=== PATIENT | female | born 1970 | race Caucasian/White ===

== ENCOUNTER 2016-09-28 11:59 | Emergency (ER) | payer MEDICARE ==
[~2016-09-28 11:59] MED LIST: /HYDR1TAB PO; ABIL2TAB; ABIL5TAB; BACT800T5 PO; CELE40TA PO; DEPA500T2 PO; EFFE75CA75; HYDR50TA8; KLON1TAB PO; LYRI75CA PO; METH-107 PO; NICO21PAT EXT; OXYC5CAP28 PO; PERC5TAB PO; PRISTIQ; PROM-190 PO; PROZ10CA7 PO; SERO1TAB PO; SOMA350T; TRAM50TA2; TRAM50TA2 PO; TRAZ50TA; TRAZ50TA4 PO; Tramadol; VENL37.5; VICO5TAB; WELLTAB40 PO; XANA0.5T PO
[2016-09-28] MEDS ORDERED: GI COCKTAIL 50ML BTL(HYOSCYAMINE/MAALOX/LIDOCAINE VISCOUS)(1:3:1) As Ordered ONE (12:24)
[2016-09-28] MEDS ORDERED: ONDANSETRON 4MG/2ML VIAL (J2405) As Ordered ONE (12:44)
[2016-09-28 12:47] LABS: BASO # 0.1 K/mm3 (0.0-0.2); BASO % 0.4 % (0.0-1.0); EOS # 0.1 K/mm3 (0.0-0.50); LARGE UNSTAINED CELL # 0.2 K/mm3 (0.0-0.4); LARGE UNSTAINED CELL % 1.3 % (0.0-4.0); LYMPH # 3.3 K/mm3 (1.5-4.5); LYMPH % 25.2 % (24.0-44.0); MEAN CORPUSCULAR HEMOGLOBIN 29.5 pg (27.0-33.0); MEAN CORPUSCULAR HGB CONC 33.4 g/dl (32.0-36.5); MEAN CORPUSCULAR VOLUME 88.6 fl (80.0-96.0); MONO # 0.4 K/mm3 (0.0-0.8); MONO % 2.9 % (0.0-5.0); NEUTROPHILS % 69.1 % (36.0-66.0); PLATELET COUNT, AUTOMATED 263 k/mm3 (150-450); RED CELL DISTRIBUTION WIDTH 12.6 % (11.5-14.5)
[2016-09-28 12:53] LABS: INR 0.99
[2016-09-28 13:15] LABS: ALBUMIN/GLOBULIN RATIO 1.03 (1.00-1.93); ALKALINE PHOSPHATASE 45 U/L (45-117); ALT/SGPT 22 U/L (12-78); AMYLASE 83 U/L (25-115); ANION GAP 7 MEQ/L (8-16); AST/SGOT 15 U/L (15-37); BILIRUBIN,DIRECT < 0.1 MG/DL (0.0-0.2); BILIRUBIN,TOTAL 0.6 MG/DL (0.2-1.0); BLOOD UREA NITROGEN 12 MG/DL (7-18); CALCIUM LEVEL 9.1 MG/DL (8.5-10.1); CARBON DIOXIDE LEVEL 29 MEQ/L (21-32); CHLORIDE LEVEL 106 MEQ/L (98-107); GLOMERULAR FILTRATION RATE > 60.0 (>58); GLUCOSE, FASTING 95 MG/DL (70-105); POTASSIUM SERUM 3.5 MEQ/L (3.5-5.1); SODIUM LEVEL 142 MEQ/L (136-145); TOTAL PROTEIN 7.9 GM/DL (6.4-8.2)
--- NOTE | 2016-09-28 13:23 | REP ---
Acute abdominal series three views including PA chest and supine upright abdomen: Comparison is 05/07/2008. PA chest: The lung herrera are clear. Cardiac size is normal. The priscila, mediastinum, and bony thorax are unremarkable. There is no free subdiaphragmatic air. Impression: Negative PA chest. No interval change. Abdomen, supine and upright views: The bowel gas pattern is normal. There are surgical clips in the right upper quadrant as interval change compatible with cholecystectomy. There are pelvic calcifications, unchanged, compatible with phleboliths. Skeletal structures and soft tissues otherwise are unremarkable. Impression: Normal bowel gas pattern. Signed by Alfonso Kilpatrick MD 09/28/2016 01:15 P
--- NOTE | 2016-09-28 13:57 | EDDOCDS ---
Physician Documentation [facility] Name: Renetta Burton Age: 46 yrs Sex: Female : 1970 Arrival Date: 09/28/2016 Time: 11:59 Bed 12 Private MD: Martha Esquivel E. Disposition: 09/28/16 13:35 Discharged to Home/Self Care. Impression: Gastro-esophageal reflux disease with esophagitis. - Condition is Stable. - Discharge Instructions: Esophagitis, Gastroesophageal Reflux Disease, Adult. - Prescriptions for Prilosec 20 mg Oral Capsule, Delayed Release(E.C.) - take 1 capsule by ORAL route once daily; 30 capsule. - Medication Reconciliation, Local Pharmacy Hours form. - Follow up: Martha Esquivel; When: 4 - 5 days; Reason: Recheck today's complaints, Continuance of care. Follow up: Eduin Miller MD; When: Call to arrange an appointment; Reason: Further diagnostic work-up, Continuance of care. Follow up: Nathaniel Nowak; When: Call to arrange an appointment; Reason: Further diagnostic work-up, Continuance of care. - Problem is an ongoing problem. - Symptoms are unchanged. Historical: - Allergies: PENICILLINS; RISPERIDONE; - Home Meds: 1. Wellbutrin XL 300 mg Oral Tb24 1 tab once daily - PMHx: neck and back "issues"; GERD; Anxiety; - PSHx: Hysterectomy; Cholecystectomy; polyps removed from rectum; Carpal Tunnel Repair- Left; - Social history: Smoking status: Patient states former smoker of tobacco. No barriers to communication noted, The patient speaks fluent Algerian, Speaks appropriately for age. - Family history: Not pertinent. - : The pt / caregiver states he / she is not on anticoagulants. Home medication list is obtained from the patient. - Exposure Risk Screening:: None identified. TRAINING DIRECTOR: 09/28 12:42 LMP N/A - Hysterectomy kc3 Vital Signs: 12:01 BP 152 / 86; Pulse 81; Resp 16; Temp 97.6(O); Pulse Ox 100% on R/A; Weight 58.97 kg / sew 130.01 lbs; Height 5 ft. 2 in. (157.48 cm); Pain 3/10; 13:15 BP 133 / 74 (auto/); kc3 13:15 Pulse 74 MON; Pulse Ox 98% ; kc3 13:55 BP 129 / 67; Pulse 69; Resp 18; Temp 99.1(TE); Pulse Ox 96% on R/A; kc3 12:01 Body Mass Index 23.78 (58.97 kg, 157.48 cm) sew MDM: 12:03 ECG WITH READING ER PHYS+CARDIAG ordered. EDMS 12:22 NS 0.9% 1000 ml IV at 100 mL/hr continuous ordered. ke 12:22 IV Saline Lock ordered. ke 12:22 Undress patient appropriately for examination ordered. ke 12:22 GI Cocktail - (Alum-Mag Hydroxide-Simeth 30 ml, Lidocaine 10 ml, Hyoscyamine 10 ml) PO ke once; Pre-mixed 50mL unit dose ordered. 12:23 Amylase Ordered. EDMS 12:23 Basic Metabolic Profile Ordered. EDMS 12:23 CBC with Diff Ordered. EDMS 12:23 Cardiac Injury Profile Ordered. EDMS 12:23 Lipase Ordered. EDMS 12:23 Liver Profile Ordered. EDMS 12:23 Prothrombin Time Profile\\E\\INR Ordered. EDMS 12:23 Troponin Ordered. EDMS 12:23 Abdomen, Flat\\E\\Upright,PA Chest Ordered. EDMS 12:23 NOTHING BY MOUTH+DIET ordered. EDMS 12:27 Ondansetron 4 mg IVP once ordered. ke 12:46 Financial registration complete. mm15 12:49 [facility] Payment Agreement was scanned into [employer] and attached to record. mm15 13:22 Basic Metabolic Profile Reviewed. ke 13:22 CBC with Diff Reviewed. ke 13:22 Amylase Reviewed. ke 13:22 Cardiac Injury Profile Reviewed. ke 13:22 Lipase Reviewed. ke 13:22 Liver Profile Reviewed. ke 13:22 Prothrombin Time Profile\\E\\INR Reviewed. ke 13:22 Troponin Reviewed. ke Administered Medications: 12:40 Drug: GI Cocktail - (Alum-Mag Hydroxide-Simeth Suspension 225 mg-200 mg-25 mg/5 mL 30 kc3 ml, Lidocaine Liquid 2 % 10 ml, Hyoscyamine Liquid 10 ml) Route: PO; 12:41 Drug: NS 0.9% 1000 ml [sodium chloride 0.9 % intravenous solution] Route: IV; Rate: 100 kc3 mL/hr; Site: right antecubital; 12:50 Drug: Ondansetron 4 mg [ondansetron HCl 2 mg/mL intravenous solution (2 mL)] Route: kc3 IVP; Site: right antecubital; Signatures: Dispatcher [employer] Astrid Flynn RN RN srm Elsner, Karl, ASPHALT TILE FLOOR LAYER ASPHALT TILE FLOOR LAYER Enriqueta Barrera mm15 Sue Garay RN RN kc3 The chart was reviewed and I authenticate all verbal orders and agree with the evaluation and treatment provided.Attachments: 12:49 [facility] Payment Agreement mm15 MTDD
--- NOTE | 2016-09-28 13:57 | EDDOCDS ---
Nurse's Notes [facility] Name: Renetta Burton Age: 46 yrs Sex: Female : 1970 Arrival Date: 09/28/2016 Time: 11:59 Bed 12 Private MD: Martha Esquivel E. Diagnosis: Gastro-esophageal reflux disease with esophagitis Presentation: 09/28 12:02 Presenting complaint: Patient states: epigastric pain for 2 weeks. pain doesn't srm radiate. hx of GERD but this feels different. nausea all the time no SOB. 81mg at 1030. Adult Sepsis Screening: The patient does not have new or worsening altered mentation. Patient's respiratory rate is less than 22. Systolic blood pressure is greater than 100. Patient has a qSOFA score of 0- Negative Sepsis Screen. Suicide/Homicide risk assessment- the patient denies having any suicidal and/or homicidal ideations and does not present with any other emotional, behavioral or mental health complaints. Status: Patient is not a vp marketing services and skin or dependent. Transition of care: patient was not received from another setting of care. 12:02 Method Of Arrival: Walkin/Carried/Asstd srm 12:05 Presenting complaint: states pain makes her anxiety worse. srm 12:05 Acuity: HAZEL Level 2 [facility] 12:21 Red Flag criteria, direct to bed for ekg. ekg given to dr theodore and discussed pt c/o at [facility] 1205. Triage Assessment: 12:04 General: Appears in no apparent distress, Behavior is appropriate for age, cooperative. srm General: Appears Behavior is anxious. Pain: Pain currently is 3 out of 10 on a pain scale. HIV screening NA for this visit Offered previously. 13:57 Cardiovascular: Chest pain is described as mild, radiates Does not radiate. episodes kc3 are intermittent began "weeks". HOUSEKEEPING DIRECTOR: 12:42 LMP N/A - Hysterectomy kc3 Historical: - Allergies: PENICILLINS; RISPERIDONE; - Home Meds: 1. Wellbutrin XL 300 mg Oral Tb24 1 tab once daily - PMHx: neck and back "issues"; GERD; Anxiety; - PSHx: Hysterectomy; Cholecystectomy; polyps removed from rectum; Carpal Tunnel Repair- Left; - Social history: Smoking status: Patient states former smoker of tobacco. No barriers to communication noted, The patient speaks fluent Polish, Speaks appropriately for age. - Family history: Not pertinent. - : The pt / caregiver states he / she is not on anticoagulants. Home medication list is obtained from the patient. - Exposure Risk Screening:: None identified. Screenin:41 Screening information is obtained from the patient. Fall risk: No risks identified. kc3 Assistance ADL's: requires no assistance with activities of daily living. Abuse/DV Screen: The patient / caregiver reports he/she is: not in a situation that causes fear, pain or injury. Nutritional screening: No deficits noted. home support is adequate. 13:57 Advance Directives: Currently, there is no health care proxy. kc3 Assessment: 12:18 General: Appears in no apparent distress, comfortable, Behavior is anxious, appropriate kc3 for age, cooperative. Pain: Denies pain. Neurological: Level of Consciousness is awake, alert, obeys commands, Oriented to person, place, time. Cardiovascular: Rhythm is sinus rhythm. Cardiovascular: Chest pain is described as mild, quality is "no pain but it feels like there's a pill stuck that I can't swallow. off and on for the last couple of weeks. Respiratory: Respiratory effort is even, unlabored. Derm: Skin is pink, warm & dry. Musculoskeletal: Circulation, motion, and sensation intact. 13:30 General: Appears in no apparent distress, comfortable, Behavior is appropriate for age, kc3 cooperative. Neurological: Level of Consciousness is awake, alert, obeys commands, Oriented to person, place, time. Respiratory: Respiratory effort is even, unlabored. Derm: Skin is pink, warm & dry. 13:56 General: Appears in no apparent distress, comfortable, Behavior is appropriate for age, kc3 cooperative. Neurological: No deficits noted. Cardiovascular: Rhythm is regular. Respiratory: Respiratory effort is even, unlabored. Derm: Skin is pink, warm & dry. Musculoskeletal: Circulation, motion, and sensation intact. Vital Signs: 12:01 BP 152 / 86; Pulse 81; Resp 16; Temp 97.6(O); Pulse Ox 100% on R/A; Weight 58.97 kg; sew Height 5 ft. 2 in. (157.48 cm); Pain 3/10; 13:15 BP 133 / 74 (auto/); kc3 13:15 Pulse 74 MON; Pulse Ox 98% ; kc3 13:55 BP 129 / 67; Pulse 69; Resp 18; Temp 99.1(TE); Pulse Ox 96% on R/A; kc3 12:01 Body Mass Index 23.78 (58.97 kg, 157.48 cm) sew Vitals: 12:01 Log In Time: September 28, 2016 at 11:58. RN notified that patient meets Red Flag sew criteria. ED Course: 12:00 Patient visited by Alley Rosen. sew 12:00 Patient moved to Waiting sew 12:01 Martha Esquivel is Private Physician. sew 12:01 Patient visited by Alley Rosen. sew 12:01 Patient moved to Pre RCE sew 12:05 Triage Initiated srm 12:05 EKG done. (by ED staff). Reviewed by Lizeth Theodore MD. dem1 12:08 Patient visited by Marshal Sargent. dem1 12:12 Sue Garay,ADÁN is Primary Nurse. srm 12:12 Patient moved to 12 srm 12:16 Corey Aguilar FNP is PHCP. ke 12:16 Patient visited by Corey Aguilar FNP. ke 12:16 Patient visited by Corey Aguilar FNP. ke 12:17 Patient visited by Marshal Sargent. dem1 12:17 Pt greeted and oriented to ED. Patient advised of names of staff involved in care, [facility] location of call shah, wait times and NPO status. Patient has correct armband on for positive identification. Placed in gown. Bed in low position. Call light in reach. Side rails up X2. ordnance keeper on. Pulse ox on. NIBP on. 12:21 Patient visited by Astrid Mullne RN. srm 12:41 Amylase Sent. kc3 12:41 Basic Metabolic Profile Sent. kc3 12:41 CBC with Diff Sent. kc3 12:41 Cardiac Injury Profile Sent. kc3 12:41 Lipase Sent. kc3 12:41 Liver Profile Sent. kc3 12:41 Prothrombin Time Profile\\E\\INR Sent. kc3 12:41 Troponin Sent. kc3 12:41 Inserted saline lock: 20 gauge in right antecubital area and blood collected. The kc3 patient tolerated the procedure well. Labs drawn. (by ED staff). Sent per order to lab. 12:42 The patient / caregiver is instructed regarding the plan of care and ED course. kc3 12:49 [facility] Payment Agreement was scanned into [employer] and attached to record. mm15 12:50 Patient visited by Sue Garay RN. kc3 13:22 Patient visited by Corey Aguilar FNP. ke 13:34 Martha Esquivel is Referral Physician. ke 13:34 Eduin Miller MD is Referral Physician. ke 13:34 Nathaniel Nowak is Referral Physician. ke 13:56 Discontinued IV lock intact, bleeding controlled, pressure dressing applied, No kc3 redness/swelling at site. No procedures done that require assistance. Administered Medications: 12:40 Drug: GI Cocktail - (Alum-Mag Hydroxide-Simeth Suspension 225 mg-200 mg-25 mg/5 mL 30 kc3 ml, Lidocaine Liquid 2 % 10 ml, Hyoscyamine Liquid 10 ml) Route: PO; 12:41 Drug: NS 0.9% 1000 ml [sodium chloride 0.9 % intravenous solution] Route: IV; Rate: 100 kc3 mL/hr; Site: right antecubital; 12:50 Drug: Ondansetron 4 mg [ondansetron HCl 2 mg/mL intravenous solution (2 mL)] Route: kc3 IVP; Site: right antecubital; Order Results: Lab Order: Amylase; SPEC'M 09/28/16 12:37 Test: AMYLASE; Value: 83; Range: 25-115; Units: U/L; Status: F Lab Order: Basic Metabolic Profile; SPEC'M 09/28/16 12:37 Test: GLUCOSE, FASTING; Value: 95; Range: 70-105; Units: MG/DL; Status: F Test: BLOOD UREA NITROGEN; Value: 12; Range: 7-18; Units: MG/DL; Status: F Test: CREATININE FOR GFR; Value: 0.80; Range: 0.55-1.02; Units: MG/DL; Status: F Test: GLOMERULAR FILTRATION RATE; Value: > 60.0; Range: >58; Status: F Test: SODIUM LEVEL; Value: 142; Range: 136-145; Units: MEQ/L; Status: F Test: POTASSIUM SERUM; Value: 3.5; Range: 3.5-5.1; Units: MEQ/L; Status: F Test: CHLORIDE LEVEL; Value: 106; Range: 98-107; Units: MEQ/L; Status: F Test: CARBON DIOXIDE LEVEL; Value: 29; Range: 21-32; Units: MEQ/L; Status: F Test: ANION GAP; Value: 7; Range: 8-16; Abnormal: Below low normal; Units: MEQ/L; Status: F Test: CALCIUM LEVEL; Value: 9.1; Range: 8.5-10.1; Units: MG/DL; Status: F Test Note: ; Units are mL/min/1.73 m2 Chronic Kidney Disease Staging per NKF: Stage I & II GFR >=60 Normal to Mildly Decreased Stage III GFR 30-59 Moderately Decreased Stage IV GFR 15-29 Severely Decreased Stage V GFR <15 Very Little GFR Left ESRD GFR <15 on BRANCH ADMINISTRATOR Lab Order: CBC with Diff; SPEC'M 09/28/16 12:37 Test: WHITE BLOOD COUNT; Value: 13.0; Range: 4.0-10.0; Abnormal: Above high normal; Units: K/mm3; Status: F Test: RED BLOOD COUNT; Value: 4.65; Range: 4.00-5.40; Units: M/mm3; Status: F Test: HEMOGLOBIN; Value: 13.7; Range: 12.0-16.0; Units: g/dl; Status: F Test: HEMATOCRIT; Value: 41.1; Range: 36.0-47.0; Units: %; Status: F Test: MEAN CORPUSCULAR VOLUME; Value: 88.6; Range: 80.0-96.0; Units: fl; Status: F Test: MEAN CORPUSCULAR HEMOGLOBIN; Value: 29.5; Range: 27.0-33.0; Units: pg; Status: F Test: MEAN CORPUSCULAR HGB CONC; Value: 33.4; Range: 32.0-36.5; Units: g/dl; Status: F Test: RED CELL DISTRIBUTION WIDTH; Value: 12.6; Range: 11.5-14.5; Units: %; Status: F Test: PLATELET COUNT, AUTOMATED; Value: 263; Range: 150-450; Units: k/mm3; Status: F Test: NEUTROPHILS %; Value: 69.1; Range: 36.0-66.0; Abnormal: Above high normal; Units: %; Status: F Test: LYMPH %; Value: 25.2; Range: 24.0-44.0; Units: %; Status: F Test: MONO %; Value: 2.9; Range: 0.0-5.0; Units: %; Status: F Test: EOS %; Value: 1.0; Range: 0.0-3.0; Units: %; Status: F Test: BASO %; Value: 0.4; Range: 0.0-1.0; Units: %; Status: F Test: LARGE UNSTAINED CELL %; Value: 1.3; Range: 0.0-4.0; Units: %; Status: F Test: NEUTROPHILS #; Value: 9.0; Range: 1.8-7.7; Abnormal: Above high normal; Units: K/mm3; Status: F Test: LYMPH #; Value: 3.3; Range: 1.5-4.5; Units: K/mm3; Status: F Test: MONO #; Value: 0.4; Range: 0.0-0.8; Units: K/mm3; Status: F Test: EOS #; Value: 0.1; Range: 0.0-0.50; Units: K/mm3; Status: F Test: BASO #; Value: 0.1; Range: 0.0-0.2; Units: K/mm3; Status: F Test: LARGE UNSTAINED CELL #; Value: 0.2; Range: 0.0-0.4; Units: K/mm3; Status: F Lab Order: Cardiac Injury Profile; SPEC'M 09/28/16 12:37 Test: CPK CREATINE PHOSPHOKINASE; Value: 70; Range: 26-192; Units: U/L; Status: F Test: CK-MB VALUE MASS; Value: 1.0; Range: 0.0-3.6; Units: NG/ML; Status: F Test: MB/CK RELATIVE INDEX; Value: 1.42; Range: < OR =4; Status: F Test Note: ; DIAGNOSIS CRITERIA MMB ng/ml Relative Index (RI) NON-AMI < or = 5 N/A [place]ONE > 5 < or = 4 AMI > 5 > 4 Lab Order: Lipase; SPEC'M 09/28/16 12:37 Test: LIPASE; Value: 230; Range: 73-393; Units: U/L; Status: F Lab Order: Liver Profile; [facility]/28[facility] 12:37 Test: AST/SGOT; Value: 15; Range: 15-37; Units: U/L; Status: F Test: ALT/SGPT; Value: 22; Range: 12-78; Units: U/L; Status: F Test: ALKALINE PHOSPHATASE; Value: 45; Range: 45-117; Units: U/L; Status: F Test: BILIRUBIN,TOTAL; Value: 0.6; Range: 0.2-1.0; Units: MG/DL; Status: F Test: BILIRUBIN,DIRECT; Value: < 0.1; Range: 0.0-0.2; Units: MG/DL; Status: F Test: TOTAL PROTEIN; Value: 7.9; Range: 6.4-8.2; Units: GM/DL; Status: F Test: ALBUMIN; Value: 4.0; Range: 3.2-5.2; Units: GM/DL; Status: F Test: ALBUMIN/GLOBULIN RATIO; Value: 1.03; Range: 1.00-1.93; Status: F Lab Order: Prothrombin Time Profile\\E\\INR; 09/28/16 12:37 Test: PROTHROMBIN TIME; Value: 13.2; Range: 12.3-14.5; Units: SECONDS; Status: F Test: INR; Value: 0.99; Status: F Test Note: ; THERAPUTIC HUMAN INR VALUES INDICATIONS NORMAL RANGES PROPHYLAXIS/TREATMENT OF: VENOUS THROMBOSIS 2.0-3.0 PULMONARY EMBOLISM 2.0-3.0 PREVENTION OF SYSTEMIC EMBOLISM FROM: TISSUE HEART VALVES 2.0-3.0 ACUTE MYOCARDIAL INFARCTION 2.0-3.0 VALVULAR HEART DISEASE 2.0-3.0 ATRIAL FIBRILLATION 2.0-3.0 MECHANICAL VALVES(HIGH RISK) 2.5-3.5 RECURRENT MYOCARDIAL INFARCTION 2.5-3.5 Lab Order: Troponin; 09/28/16 12:37 Test: TROPONIN I; Value: < 0.02; Range: < 0.10; Units: NG/ML; Status: F Test Note: ; Troponin I Reference Interval for [email or web address] LOCI: 99th Percentile= 0.00-0.045 ng/ml Risk Stratification: <= 0.10 ng/ml Decreased Risk for Adverse Clinical Events. 0.10-1.50 ng/ml Increased Risk for Adverse Clinical Events. Evaluation of additional criterion and/or repeat testing in 2-6 hours is suggested to rule out myocardial damage. >= 1.50 ng/ml Indicative of Myocardial Injury. Outcome: 13:35 Discharge ordered by Provider. charlotte 13:56 Discharge Assessment: Patient awake, alert and oriented x 3. No cognitive and/or kc3 functional deficits noted. Patient verbalized understanding of disposition instructions. patient administered narcotics - no. The following High Risk Discharge criteria are identified: None. Discharged to home ambulatory. Condition: stable. Discharge instructions given to patient, Instructed on discharge instructions, follow up and referral plans. medication usage, Demonstrated understanding of instructions, medications, Pt was receptive of discharge instructions/ teaching. Prescriptions given X 1. No special radiology studies were completed. Property :Personal belongings accompany Pt. 13:57 Patient left the ED. kc3 Signatures: Astrid Mullen, RN RN Corey Castellanos, GAS SYSTEM OPERATOR [facility] Marshal Shaver1 Alley Rosen Marlynn mm15 Sue Garay,RN RN kc3 [facility] CENTERKaitlynn
--- NOTE | 2016-09-28 21:31 | ECGEPIP ---
Stationary ECG Study [facility] - ED Test Date: 2016-09-28 Pat Name: BRIANNA RUBIN Department: Room: - Gender: F Counselor Dormitory: pat : 1970 Requested By: MEE Pandya Order Number: [id number] Reading MD: Alley Apple Measurements Intervals [place] Rate: 74 P: 38 NC: 133 QRS: 78 QRSD: 84 T: 12 QT: 368 QTc: 410 Interpretive Statements SINUS RHYTHM MINIMAL ST DEPRESSION NO PRIOR FOR COMPARISON Electronically Signed On 09-28-2016 21:30:39 EST by Alley Apple
--- NOTE | 2016-09-30 14:58 | EDDOCDS ---
Physician Documentation [facility] Name: Renetta Burton Age: 46 yrs Sex: Female : 1970 Arrival Date: 09/28/2016 Time: 11:59 Bed 12 Private MD: Martha Esquivel E. Disposition: 09/28/16 13:35 Discharged to Home/Self Care. Impression: Gastro-esophageal reflux disease with esophagitis. - Condition is Stable. - Discharge Instructions: Esophagitis, Gastroesophageal Reflux Disease, Adult. - Prescriptions for Prilosec 20 mg Oral Capsule, Delayed Release(E.C.) - take 1 capsule by ORAL route once daily; 30 capsule. - Medication Reconciliation, Local Pharmacy Hours form. - Follow up: Martha Esquivel; When: 4 - 5 days; Reason: Recheck today's complaints, Continuance of care. Follow up: Eduin Miller MD; When: Call to arrange an appointment; Reason: Further diagnostic work-up, Continuance of care. Follow up: Nathaniel Nowak; When: Call to arrange an appointment; Reason: Further diagnostic work-up, Continuance of care. - Problem is an ongoing problem. - Symptoms are unchanged. Historical: - Allergies: PENICILLINS; RISPERIDONE; - Home Meds: 1. Wellbutrin XL 300 mg Oral Tb24 1 tab once daily - PMHx: neck and back "issues"; GERD; Anxiety; - PSHx: Hysterectomy; Cholecystectomy; polyps removed from rectum; Carpal Tunnel Repair- Left; - Social history: Smoking status: Patient states former smoker of tobacco. No barriers to communication noted, The patient speaks fluent Scottish, Speaks appropriately for age. - Family history: Not pertinent. - : The pt / caregiver states he / she is not on anticoagulants. Home medication list is obtained from the patient. - Exposure Risk Screening:: None identified. 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 2 in. (157.48 cm); Pain 3/10; 13:15 BP 133 / 74 (auto/); kc3 13:15 Pulse 74 MON; Pulse Ox 98% ; kc3 13:55 BP 129 / 67; Pulse 69; Resp 18; Temp 99.1(TE); Pulse Ox 96% on R/A; kc3 12:01 Body Mass Index 23.78 (58.97 kg, 157.48 cm) sew MDM: 12:03 ECG WITH READING ER PHYS+CARDIAG ordered. EDMS 12:22 NS 0.9% 1000 ml IV at 100 mL/hr continuous ordered. ke 12:22 IV Saline Lock ordered. ke 12:22 Undress patient appropriately for examination ordered. ke 12:22 GI Cocktail - (Alum-Mag Hydroxide-Simeth 30 ml, Lidocaine 10 ml, Hyoscyamine 10 ml) PO ke once; Pre-mixed 50mL unit dose ordered. 12:23 Amylase Ordered. EDMS 12:23 Basic Metabolic Profile Ordered. EDMS 12:23 CBC with Diff Ordered. EDMS 12:23 Cardiac Injury Profile Ordered. EDMS 12:23 Lipase Ordered. EDMS 12:23 Liver Profile Ordered. EDMS 12:23 Prothrombin Time Profile\\E\\INR Ordered. EDMS 12:23 Troponin Ordered. EDMS 12:23 Abdomen, Flat\\E\\Upright,PA Chest Ordered. EDMS 12:23 NOTHING BY MOUTH+DIET ordered. EDMS 12:27 Ondansetron 4 mg IVP once ordered. ke 12:46 Financial registration complete. mm15 12:49 [facility] Payment Agreement was scanned into [employer] and attached to record. mm15 13:22 Basic Metabolic Profile Reviewed. ke 13:22 CBC with Diff Reviewed. ke 13:22 Amylase Reviewed. ke 13:22 Cardiac Injury Profile Reviewed. ke 13:22 Lipase Reviewed. ke 13:22 Liver Profile Reviewed. ke 13:22 Prothrombin Time Profile\\E\\INR Reviewed. ke 13:22 Troponin Reviewed. ke 14:30 Other: HEALTH CARE PROXY was scanned into [employer] and attached to record. lg 14:57 T-Sheet-- Draft Copy was scanned into [employer] and attached to record. gb 09/29 17:06 ECG/EKG was scanned into [employer] and attached to record. gb Administered Medications: 09/28 12:40 Drug: GI Cocktail - (Alum-Mag Hydroxide-Simeth Suspension 225 mg-200 mg-25 mg/5 mL 30 kc3 ml, Lidocaine Liquid 2 % 10 ml, Hyoscyamine Liquid 10 ml) Route: PO; 12:41 Drug: NS 0.9% 1000 ml [sodium chloride 0.9 % intravenous solution] Route: IV; Rate: 100 kc3 mL/hr; Site: right antecubital; 12:50 Drug: Ondansetron 4 mg [ondansetron HCl 2 mg/mL intravenous solution (2 mL)] Route: kc3 IVP; Site: right antecubital; Signatures: Dispatcher [employer] EDMS Astrid Mullen, RN RN [facility] Rhonda Ruby, Reg Reg gb Dallas Gonzales, Reg Reg lg Corey Aguilar, BROOD STATION MANAGER BROOD STATION MANAGER Enriqueta Barrera mm15 Sue Garay RN RN kc3 The chart was reviewed and I authenticate all verbal orders and agree with the evaluation and treatment provided.Attachments: 12:49 [facility] Payment Agreement mm15 14:57 T-Sheet-- Draft Copy 09/29 17:06 ECG/EKG Chart Complete MTDD
--- NOTE | 2016-09-30 14:58 | EDDOCDS ---
Nurse's Notes [facility] Name: Brianna Burton Age: 46 yrs Sex: Female : 1970 Arrival Date: 09/28/2016 Time: 11:59 Bed 12 Private MD: Martha Esquivel E. Diagnosis: Gastro-esophageal reflux disease with esophagitis Presentation: 09/28 12:02 Presenting complaint: Patient states: epigastric pain for 2 weeks. pain doesn't srm radiate. hx of GERD but this feels different. nausea all the time no SOB. 81mg at 1030. Adult Sepsis Screening: The patient does not have new or worsening altered mentation. Patient's respiratory rate is less than 22. Systolic blood pressure is greater than 100. Patient has a qSOFA score of 0- Negative Sepsis Screen. Suicide/Homicide risk assessment- the patient denies having any suicidal and/or homicidal ideations and does not present with any other emotional, behavioral or mental health complaints. Status: Patient is not a engine service repairer or dependent. Transition of care: patient was not received from another setting of care. 12:02 Method Of Arrival: Walkin/Carried/Asstd srm 12:05 Presenting complaint: states pain makes her anxiety worse. srm 12:05 Acuity: HAZEL Level 2 [facility] 12:21 Red Flag criteria, direct to bed for ekg. ekg given to dr badillo and discussed pt c/o at [facility] 1205. Triage Assessment: 12:04 General: Appears in no apparent distress, Behavior is appropriate for age, cooperative. srm General: Appears Behavior is anxious. Pain: Pain currently is 3 out of 10 on a pain scale. HIV screening NA for this visit Offered previously. 13:57 Cardiovascular: Chest pain is described as mild, radiates Does not radiate. episodes kc3 are intermittent began "weeks". 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 Wellbutrin XL 300 mg Oral Tb24 1 tab once daily - PMHx: neck and back "issues"; GERD; Anxiety; - PSHx: Hysterectomy; Cholecystectomy; polyps removed from rectum; Carpal Tunnel Repair- Left; - Social history: Smoking status: Patient states former smoker of tobacco. No barriers to communication noted, The patient speaks fluent Icelandic, Speaks appropriately for age. - Family history: Not pertinent. - : The pt / caregiver states he / she is not on anticoagulants. Home medication list is obtained from the patient. - Exposure Risk Screening:: None identified. Screenin:41 Screening information is obtained from the patient. Fall risk: No risks identified. kc3 Assistance ADL's: requires no assistance with activities of daily living. Abuse/DV Screen: The patient / caregiver reports he/she is: not in a situation that causes fear, pain or injury. Nutritional screening: No deficits noted. home support is adequate. 13:57 Advance Directives: Currently, there is no health care proxy. kc3 Assessment: 12:18 General: Appears in no apparent distress, comfortable, Behavior is anxious, appropriate kc3 for age, cooperative. Pain: Denies pain. Neurological: Level of Consciousness is awake, alert, obeys commands, Oriented to person, place, time. Cardiovascular: Rhythm is sinus rhythm. Cardiovascular: Chest pain is described as mild, quality is "no pain but it feels like there's a pill stuck that I can't swallow. off and on for the last couple of weeks. Respiratory: Respiratory effort is even, unlabored. Derm: Skin is pink, warm & dry. Musculoskeletal: Circulation, motion, and sensation intact. 13:30 General: Appears in no apparent distress, comfortable, Behavior is appropriate for age, kc3 cooperative. Neurological: Level of Consciousness is awake, alert, obeys commands, Oriented to person, place, time. Respiratory: Respiratory effort is even, unlabored. Derm: Skin is pink, warm & dry. 13:56 General: Appears in no apparent distress, comfortable, Behavior is appropriate for age, kc3 cooperative. Neurological: No deficits noted. Cardiovascular: Rhythm is regular. Respiratory: Respiratory effort is even, unlabored. Derm: Skin is pink, warm & dry. Musculoskeletal: Circulation, motion, and sensation intact. Vital Signs: 12:01 BP 152 / 86; Pulse 81; Resp 16; Temp 97.6(O); Pulse Ox 100% on R/A; Weight 58.97 kg; sew Height 5 ft. 2 in. (157.48 cm); Pain 3/10; 13:15 BP 133 / 74 (auto/); kc3 13:15 Pulse 74 MON; Pulse Ox 98% ; kc3 13:55 BP 129 / 67; Pulse 69; Resp 18; Temp 99.1(TE); Pulse Ox 96% on R/A; kc3 12:01 Body Mass Index 23.78 (58.97 kg, 157.48 cm) sew Vitals: 12:01 Log In Time: September 28, 2016 at 11:58. RN notified that patient meets Red Flag sew criteria. ED Course: 12:00 Patient visited by Alley Rosen. sew 12:00 Patient moved to Waiting sew 12:01 Martha Esquivel is Private Physician. sew 12:01 Patient visited by Alley Rosen. sew 12:01 Patient moved to Pre RCE sew 12:05 Triage Initiated srm 12:05 EKG done. (by ED staff). Reviewed by Lizeth Badillo MD. dem1 12:08 Patient visited by Marshal Sargent. dem1 12:12 Sue Garay,ADÁN is Primary Nurse. srm 12:12 Patient moved to 12 srm 12:16 Corey Aguilar FNP is PHCP. ke 12:16 Patient visited by Corey Aguilar FNP. ke 12:16 Patient visited by Corey Aguilar FNP. ke 12:17 Patient visited by Marshal Sargent. dem1 12:17 Pt greeted and oriented to ED. Patient advised of names of staff involved in care, [facility] location of call shah, wait times and NPO status. Patient has correct armband on for positive identification. Placed in gown. Bed in low position. Call light in reach. Side rails up X2. groundwater monitoring technician on. Pulse ox on. NIBP on. 12:21 Patient visited by Astrid Mullen RN. srm 12:41 Amylase Sent. kc3 12:41 Basic Metabolic Profile Sent. kc3 12:41 CBC with Diff Sent. kc3 12:41 Cardiac Injury Profile Sent. kc3 12:41 Lipase Sent. kc3 12:41 Liver Profile Sent. kc3 12:41 Prothrombin Time Profile\\E\\INR Sent. kc3 12:41 Troponin Sent. kc3 12:41 Inserted saline lock: 20 gauge in right antecubital area and blood collected. The kc3 patient tolerated the procedure well. Labs drawn. (by ED staff). Sent per order to lab. 12:42 The patient / caregiver is instructed regarding the plan of care and ED course. kc3 12:49 [facility] Payment Agreement was scanned into [employer] and attached to record. mm15 12:50 Patient visited by Sue Garay RN. kc3 13:22 Patient visited by Corey Aguilar FNP. ke 13:34 Martha Esquivel is Referral Physician. ke 13:34 Eduin Miller MD is Referral Physician. ke 13:34 Nathaniel Nowak is Referral Physician. ke 13:56 Discontinued IV lock intact, bleeding controlled, pressure dressing applied, No kc3 redness/swelling at site. No procedures done that require assistance. 14:11 Abdomen, Flat\\E\\Upright,PA Chest Returned. EDMS 14:30 Other: HEALTH CARE PROXY was scanned into [employer] and attached to record. lg 14:57 T-Sheet-- Draft Copy was scanned into [employer] and attached to record. gb 22:16 EKG-ADULT Returned. EDMS 02 17:06 ECG/EKG was scanned into [employer] and attached to record. gb Administered Medications: 09/28 12:40 Drug: GI Cocktail - (Alum-Mag Hydroxide-Simeth Suspension 225 mg-200 mg-25 mg/5 mL 30 kc3 ml, Lidocaine Liquid 2 % 10 ml, Hyoscyamine Liquid 10 ml) Route: PO; 12:41 Drug: NS 0.9% 1000 ml [sodium chloride 0.9 % intravenous solution] Route: IV; Rate: 100 kc3 mL/hr; Site: right antecubital; 12:50 Drug: Ondansetron 4 mg [ondansetron HCl 2 mg/mL intravenous solution (2 mL)] Route: kc3 IVP; Site: right antecubital; Order Results: Lab Order: Amylase; SPEC'M 09/28/16 12:37 Test: AMYLASE; Value: 83; Range: 25-115; Units: U/L; Status: F Lab Order: Basic Metabolic Profile; SPEC'M 09/28/16 12:37 Test: GLUCOSE, FASTING; Value: 95; Range: 70-105; Units: MG/DL; Status: F Test: BLOOD UREA NITROGEN; Value: 12; Range: 7-18; Units: MG/DL; Status: F Test: CREATININE FOR GFR; Value: 0.80; Range: 0.55-1.02; Units: MG/DL; Status: F Test: GLOMERULAR FILTRATION RATE; Value: > 60.0; Range: >58; Status: F Test: SODIUM LEVEL; Value: 142; Range: 136-145; Units: MEQ/L; Status: F Test: POTASSIUM SERUM; Value: 3.5; Range: 3.5-5.1; Units: MEQ/L; Status: F Test: CHLORIDE LEVEL; Value: 106; Range: 98-107; Units: MEQ/L; Status: F Test: CARBON DIOXIDE LEVEL; Value: 29; Range: 21-32; Units: MEQ/L; Status: F Test: ANION GAP; Value: 7; Range: 8-16; Abnormal: Below low normal; Units: MEQ/L; Status: F Test: CALCIUM LEVEL; Value: 9.1; Range: 8.5-10.1; Units: MG/DL; Status: F Test Note: ; Units are mL/min/1.73 m2 Chronic Kidney Disease Staging per NKF: Stage I & II GFR >=60 Normal to Mildly Decreased Stage III GFR 30-59 Moderately Decreased Stage IV GFR 15-29 Severely Decreased Stage V GFR <15 Very Little GFR Left ESRD GFR <15 on QUARTZ ORIENTATOR Lab Order: CBC with Diff; SPEC'M 09/28/16 12:37 Test: WHITE BLOOD COUNT; Value: 13.0; Range: 4.0-10.0; Abnormal: Above high normal; Units: K/mm3; Status: F Test: RED BLOOD COUNT; Value: 4.65; Range: 4.00-5.40; Units: M/mm3; Status: F Test: HEMOGLOBIN; Value: 13.7; Range: 12.0-16.0; Units: g/dl; Status: F Test: HEMATOCRIT; Value: 41.1; Range: 36.0-47.0; Units: %; Status: F Test: MEAN CORPUSCULAR VOLUME; Value: 88.6; Range: 80.0-96.0; Units: fl; Status: F Test: MEAN CORPUSCULAR HEMOGLOBIN; Value: 29.5; Range: 27.0-33.0; Units: pg; Status: F Test: MEAN CORPUSCULAR HGB CONC; Value: 33.4; Range: 32.0-36.5; Units: g/dl; Status: F Test: RED CELL DISTRIBUTION WIDTH; Value: 12.6; Range: 11.5-14.5; Units: %; Status: F Test: PLATELET COUNT, AUTOMATED; Value: 263; Range: 150-450; Units: k/mm3; Status: F Test: NEUTROPHILS %; Value: 69.1; Range: 36.0-66.0; Abnormal: Above high normal; Units: %; Status: F Test: LYMPH %; Value: 25.2; Range: 24.0-44.0; Units: %; Status: F Test: MONO %; Value: 2.9; Range: 0.0-5.0; Units: %; Status: F Test: EOS %; Value: 1.0; Range: 0.0-3.0; Units: %; Status: F Test: BASO %; Value: 0.4; Range: 0.0-1.0; Units: %; Status: F Test: LARGE UNSTAINED CELL %; Value: 1.3; Range: 0.0-4.0; Units: %; Status: F Test: NEUTROPHILS #; Value: 9.0; Range: 1.8-7.7; Abnormal: Above high normal; Units: K/mm3; Status: F Test: LYMPH #; Value: 3.3; Range: 1.5-4.5; Units: K/mm3; Status: F Test: MONO #; Value: 0.4; Range: 0.0-0.8; Units: K/mm3; Status: F Test: EOS #; Value: 0.1; Range: 0.0-0.50; Units: K/mm3; Status: F Test: BASO #; Value: 0.1; Range: 0.0-0.2; Units: K/mm3; Status: F Test: LARGE UNSTAINED CELL #; Value: 0.2; Range: 0.0-0.4; Units: K/mm3; Status: F Lab Order: Cardiac Injury Profile; SPEC'M 09/28/16 12:37 Test: CPK CREATINE PHOSPHOKINASE; Value: 70; Range: 26-192; Units: U/L; Status: F Test: CK-MB VALUE MASS; Value: 1.0; Range: 0.0-3.6; Units: NG/ML; Status: F Test: MB/CK RELATIVE INDEX; Value: 1.42; Range: < OR =4; Status: F Test Note: ; DIAGNOSIS CRITERIA MMB ng/ml Relative Index (RI) NON-AMI < or = 5 N/A [place] > 5 < or = 4 AMI > 5 > 4 Lab Order: Lipase; [facility] 09/28/16 12:37 Test: LIPASE; Value: 230; Range: 73-393; Units: U/L; Status: F Lab Order: Liver Profile; [facility] 09/28/16 12:37 Test: AST/SGOT; Value: 15; Range: 15-37; Units: U/L; Status: F Test: ALT/SGPT; Value: 22; Range: 12-78; Units: U/L; Status: F Test: ALKALINE PHOSPHATASE; Value: 45; Range: 45-117; Units: U/L; Status: F Test: BILIRUBIN,TOTAL; Value: 0.6; Range: 0.2-1.0; Units: MG/DL; Status: F Test: BILIRUBIN,DIRECT; Value: < 0.1; Range: 0.0-0.2; Units: MG/DL; Status: F Test: TOTAL PROTEIN; Value: 7.9; Range: 6.4-8.2; Units: GM/DL; Status: F Test: ALBUMIN; Value: 4.0; Range: 3.2-5.2; Units: GM/DL; Status: F Test: ALBUMIN/GLOBULIN RATIO; Value: 1.03; Range: 1.00-1.93; Status: F Lab Order: Prothrombin Time Profile\\E\\INR; [facility] 09/28/16 12:37 Test: PROTHROMBIN TIME; Value: 13.2; Range: 12.3-14.5; Units: SECONDS; Status: F Test: INR; Value: 0.99; Status: F Test Note: ; THERAPUTIC HUMAN INR VALUES INDICATIONS NORMAL RANGES PROPHYLAXIS/TREATMENT OF: VENOUS THROMBOSIS 2.0-3.0 PULMONARY EMBOLISM 2.0-3.0 PREVENTION OF SYSTEMIC EMBOLISM FROM: TISSUE HEART VALVES 2.0-3.0 ACUTE MYOCARDIAL INFARCTION 2.0-3.0 VALVULAR HEART DISEASE 2.0-3.0 ATRIAL FIBRILLATION 2.0-3.0 MECHANICAL VALVES(HIGH RISK) 2.5-3.5 RECURRENT MYOCARDIAL INFARCTION 2.5-3.5 Lab Order: Troponin; SPEC'M 09/28/16 12:37 Test: TROPONIN I; Value: < 0.02; Range: < 0.10; Units: NG/ML; Status: F Test Note: ; Troponin I Reference Interval for [employer] [place] LOCI: 99th Percentile= 0.00-0.045 ng/ml Risk Stratification: <= 0.10 ng/ml Decreased Risk for Adverse Clinical Events. 0.10-1.50 ng/ml Increased Risk for Adverse Clinical Events. Evaluation of additional criterion and/or repeat testing in 2-6 hours is suggested to rule out myocardial damage. >= 1.50 ng/ml Indicative of Myocardial Injury. 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; : 1970 Requested By: LIZETH Pandya; Order Number: [id number] Reading MD: Alley Apple; Measurements; Intervals [place]; Rate: 74 P: 38; MS: 133 QRS: 78; QRSD: 84 T: 12; QT: 368; QTc: 410; Interpretive Statements; SINUS RHYTHM; MINIMAL ST DEPRESSION; NO PRIOR FOR COMPARISON; Electronically Signed On 09-28-2016 21:30:39 EST by Alley Apple; Radiology Order: Abdomen, Flat\\E\\Upright,PA Chest Test: Abdomen, Flat\\E\\Upright,PA Chest REASON FOR EXAMINATION: Abdomen Pain; Acute abdominal series three views including PA chest and supine upright; abdomen:; ; Comparison is 05/07/2008.; ; PA chest:; ; The lung herrera are clear. Cardiac size is normal. The priscila, mediastinum, and; bony thorax are unremarkable.; ; There is no free subdiaphragmatic air.; ; Impression:; ; Negative PA chest. No interval change.; ; ; ; Abdomen, supine and upright views:; ; The bowel gas pattern is normal.; ; There are surgical clips in the right upper quadrant as interval change; compatible with cholecystectomy.; ; There are pelvic calcifications, unchanged, compatible with phleboliths.; ; Skeletal structures and soft tissues otherwise are unremarkable.; ; Impression:; ; Normal bowel gas pattern.; ; ; Signed by; Alfonso Kilpatrick MD 09/28/2016 01:15 P; Outcome: 13:35 Discharge ordered by Provider. charlotte 13:56 Discharge Assessment: Patient awake, alert and oriented x 3. No cognitive and/or kc3 functional deficits noted. Patient verbalized understanding of disposition instructions. patient administered narcotics - no. The following High Risk Discharge criteria are identified: None. Discharged to home ambulatory. Condition: stable. Discharge instructions given to patient, Instructed on discharge instructions, follow up and referral plans. medication usage, Demonstrated understanding of instructions, medications, Pt was receptive of discharge instructions/ teaching. Prescriptions given X 1. No special radiology studies were completed. Property :Personal belongings accompany Pt. 13:57 Patient left the ED. kc3 Signatures: Dispatcher [employer] EDMS Astrid Mullen, RN RN [facility] Rhnoda Ruby, Reg Reg gb Dallas Gonzales, Reg Reg lg Corey Aguilar, HAND ASSEMBLER FOR PULLER OVER HAND ASSEMBLER FOR PULLER OVER Marshal Shaver1 Alley Rosen Marlynn mm15 Sue Garay,RN RN kc3 Chart Complete MTDD
--- NOTE | 2016-09-30 14:58 | EDDOCDS ---
Physician Documentation [facility] Name: Renetta Burton Age: 46 yrs Sex: Female : 1970 Arrival Date: 09/28/2016 Time: 11:59 Bed 12 Private MD: Martha Esquivel E. Disposition: 09/28/16 13:35 Discharged to Home/Self Care. Impression: Gastro-esophageal reflux disease with esophagitis. - Condition is Stable. - Discharge Instructions: Esophagitis, Gastroesophageal Reflux Disease, Adult. - Prescriptions for Prilosec 20 mg Oral Capsule, Delayed Release(E.C.) - take 1 capsule by ORAL route once daily; 30 capsule. - Medication Reconciliation, Local Pharmacy Hours form. - Follow up: Martha Esquivel; When: 4 - 5 days; Reason: Recheck today's complaints, Continuance of care. Follow up: Eduin Miller MD; When: Call to arrange an appointment; Reason: Further diagnostic work-up, Continuance of care. Follow up: Natahniel Nowak; When: Call to arrange an appointment; Reason: Further diagnostic work-up, Continuance of care. - Problem is an ongoing problem. - Symptoms are unchanged. Historical: - Allergies: PENICILLINS; RISPERIDONE; - Home Meds: 1. Wellbutrin XL 300 mg Oral Tb24 1 tab once daily - PMHx: neck and back "issues"; GERD; Anxiety; - PSHx: Hysterectomy; Cholecystectomy; polyps removed from rectum; Carpal Tunnel Repair- Left; - Social history: Smoking status: Patient states former smoker of tobacco. No barriers to communication noted, The patient speaks fluent Indian, Speaks appropriately for age. - Family history: Not pertinent. - : The pt / caregiver states he / she is not on anticoagulants. Home medication list is obtained from the patient. - Exposure Risk Screening:: None identified. QUALITY CONTROL DIRECTOR: 09/28 12:42 LMP N/A - Hysterectomy kc3 Vital Signs: 12:01 BP 152 / 86; Pulse 81; Resp 16; Temp 97.6(O); Pulse Ox 100% on R/A; Weight 58.97 kg / sew 130.01 lbs; Height 5 ft. 2 in. (157.48 cm); Pain 3/10; 13:15 BP 133 / 74 (auto/); kc3 13:15 Pulse 74 MON; Pulse Ox 98% ; kc3 13:55 BP 129 / 67; Pulse 69; Resp 18; Temp 99.1(TE); Pulse Ox 96% on R/A; kc3 12:01 Body Mass Index 23.78 (58.97 kg, 157.48 cm) sew MDM: 12:03 ECG WITH READING ER PHYS+CARDIAG ordered. EDMS 12:22 NS 0.9% 1000 ml IV at 100 mL/hr continuous ordered. ke 12:22 IV Saline Lock ordered. ke 12:22 Undress patient appropriately for examination ordered. ke 12:22 GI Cocktail - (Alum-Mag Hydroxide-Simeth 30 ml, Lidocaine 10 ml, Hyoscyamine 10 ml) PO ke once; Pre-mixed 50mL unit dose ordered. 12:23 Amylase Ordered. EDMS 12:23 Basic Metabolic Profile Ordered. EDMS 12:23 CBC with Diff Ordered. EDMS 12:23 Cardiac Injury Profile Ordered. EDMS 12:23 Lipase Ordered. EDMS 12:23 Liver Profile Ordered. EDMS 12:23 Prothrombin Time Profile\\E\\INR Ordered. EDMS 12:23 Troponin Ordered. EDMS 12:23 Abdomen, Flat\\E\\Upright,PA Chest Ordered. EDMS 12:23 NOTHING BY MOUTH+DIET ordered. EDMS 12:27 Ondansetron 4 mg IVP once ordered. ke 12:46 Financial registration complete. mm15 12:49 [facility] Payment Agreement was scanned into [employer] and attached to record. mm15 13:22 Basic Metabolic Profile Reviewed. ke 13:22 CBC with Diff Reviewed. ke 13:22 Amylase Reviewed. ke 13:22 Cardiac Injury Profile Reviewed. ke 13:22 Lipase Reviewed. ke 13:22 Liver Profile Reviewed. ke 13:22 Prothrombin Time Profile\\E\\INR Reviewed. ke 13:22 Troponin Reviewed. ke 14:30 Other: HEALTH CARE PROXY was scanned into [employer] and attached to record. lg 14:57 T-Sheet-- Draft Copy was scanned into [employer] and attached to record. gb 09/29 17:06 ECG/EKG was scanned into [employer] and attached to record. gb Administered Medications: 09/28 12:40 Drug: GI Cocktail - (Alum-Mag Hydroxide-Simeth Suspension 225 mg-200 mg-25 mg/5 mL 30 kc3 ml, Lidocaine Liquid 2 % 10 ml, Hyoscyamine Liquid 10 ml) Route: PO; 12:41 Drug: NS 0.9% 1000 ml [sodium chloride 0.9 % intravenous solution] Route: IV; Rate: 100 kc3 mL/hr; Site: right antecubital; 12:50 Drug: Ondansetron 4 mg [ondansetron HCl 2 mg/mL intravenous solution (2 mL)] Route: kc3 IVP; Site: right antecubital; Signatures: Dispatcher [employer] EDMS Astrid Mullen, RN RN [facility] Rhonda Ruby, Reg Reg gb Dallas Gonzales, Reg Reg lg Corey Aguilar, LOG CHAIN FEEDER LOG CHAIN FEEDER Enriqueta Barrera mm15 Sue Garay RN RN kc3 The chart was reviewed and I authenticate all verbal orders and agree with the evaluation and treatment provided.Attachments: 12:49 [facility] Payment Agreement mm15 14:57 T-Sheet-- Draft Copy 09/29 17:06 ECG/EKG Chart Complete MTDD
== END 2016-09-28 13:57 | disposition home or self-care (01) ==
LOC: M ED 11:59
DX: K21.0 Gastro-esophageal reflux disease with esophagitis (principal); F41.9 Anxiety disorder, unspecified; Z87.891 Personal history of nicotine dependence; Z79.899 Other long term (current) drug therapy; Z88.0 Allergy status to penicillin; Z88.8 Allergy status to other drugs, medicaments and biological substances
CPT/HCPCS: 36415; 74022; 80048; 80076; 82150; 82550; 82553; 83690; 84484; 85025; 85610; 93005; 96374; 99285; J2405

== ENCOUNTER → 2017-01-24 | Outpatient (REF) | payer MEDICARE | LOC: M LAB REF 17:16 | PROVIDERS: ATTEND Obstetrics & Gynecology | DX: Z12.72 Encounter for screening for malignant neoplasm of vagina (principal) | CPT/HCPCS: 87624; G0123 ==

== ENCOUNTER → 2017-03-11 | Outpatient (CLI) | payer MEDICARE ==
[~2017-03-11] MED LIST changes: -METH-107 PO; +METH1TAB40 PO; +TRAZ50TA11 PO; -TRAZ50TA4 PO
--- NOTE | 2017-03-11 11:34 | REPMRS ---
Patient History The patient states she had a clinical breast exam in 01/2017. Family history of colorectal cancer in paternal grandfather at age 50 or over, pancreatic cancer in mother at age 58, and pancreatic cancer in maternal grandmother at age 70. Benign stereotatic breast biopsy of the right breast, March 27, 2010. Digital Woman Screen Mammo: March 11, 2017 - Exam #: [id number] Bilateral CC and MLO view(s) were taken. Technologist: Iva Cummins, Technologist Prior study comparison: March 08, 2016, digital woman screen mammo performed at [facility]. December 10, 2014, digital woman screen mammo performed at [facility]. FINDINGS: The breast tissue is heterogeneously dense. This may lower the sensitivity of mammography. There has been no change in the appearance of the mammogram from the prior studies. There is a moderate amount of residual fibroglandular tissue which is fairly symmetric. There is no interval development of dominant mass, areas of architectural distortion, or clustered microcalcification typical of malignancy. ASSESSMENT: BI-RADS/ACR category 1 mammogram. Negative. Recommendation Routine screening mammogram in 1 year (for women over age 40). This mammogram was interpreted with the aid of an FDA-approved computer-aided dectection system. Electronically Signed By: Alfonso Egan MD 03/11/17 [id number]
== END ==
LOC: M WHC 09:54
PROVIDERS: ATTEND Family Medicine
DX: Z12.31 Encounter for screening mammogram for malignant neoplasm of breast (principal)

== ENCOUNTER → 2017-05-08 | Outpatient (REF) | payer MEDICARE ==
[2017-05-08 17:30] LABS: MAGNESIUM LEVEL 2.2 MG/DL (1.8-2.4)
== END ==
LOC: M SFHCPLAZ 11:06
PROVIDERS: ATTEND Family Medicine
DX: M25.571 Pain in right ankle and joints of right foot (principal); G25.81 Restless legs syndrome
CPT/HCPCS: 36415; 83540; 83735; 86200; 86431; G0463

== ENCOUNTER → 2017-06-11 | Outpatient (CLI) | payer MEDICARE ==
--- NOTE | 2017-06-11 10:41 | REP ---
ULTRASOUND RIGHT AXILLA: Real-time sonographic evaluation of right axilla performed at the site of a reported palpable abnormality. There is a complex cyst just beneath the skin which measures 8 x 7 x 3 mm. This may represent a sebaceous cyst. There is no other evidence of cystic or solid nodule. Signed by Alfonso Egan MD 06/12/2017 04:24 P
== END ==
LOC: M RAD 10:07
PROVIDERS: ATTEND Family Medicine
DX: M79.89 Other specified soft tissue disorders (principal)

== ENCOUNTER → 2017-09-11 | Outpatient (REF) | payer MEDICARE, OTHER ==
[2017-09-11 14:32] LABS: RUBELLA IgG QUALITATIVE IMMUNE (IMMUNE)
[2017-09-12 10:14] LABS: RUBEOLA IgG ANTIBODY 91.3 AU/mL (Immune >29.9)
== END ==
LOC: M SFHCPLAZ 10:12
DX: Z78.9 Other specified health status (principal); Z92.29 Personal history of other drug therapy
CPT/HCPCS: 86762

== ENCOUNTER → 2017-09-27 | Outpatient (REF) | payer MEDICARE | LOC: M LAB REF 13:26 | DX: L72.3 Sebaceous cyst (principal) | CPT/HCPCS: 88304 ==

== ENCOUNTER → 2017-11-28 | Outpatient (CLI) | payer MEDICARE | LOC: M SMT 08:44 | DX: M77.02 Medial epicondylitis, left elbow (principal) | CPT/HCPCS: 73080 ==

== ENCOUNTER → 2017-12-05 | Outpatient (CLI) | payer MEDICARE | LOC: M SLEEP 19:34 | DX: G47.30 Sleep apnea, unspecified (principal) | CPT/HCPCS: 95810 ==

== ENCOUNTER → 2017-12-17 | Outpatient (REF) | payer MEDICARE ==
[2017-12-17 13:02] LABS: FREE T4 0.82 NG/DL (0.76-1.46)
[2017-12-17 13:02] LABS: IRON (FE) 28 UG/DL (50-170)
== END ==
LOC: M SFHCPLAZ 08:20
DX: G25.81 Restless legs syndrome (principal); M77.02 Medial epicondylitis, left elbow; G47.33 Obstructive sleep apnea (adult) (pediatric); K21.9 Gastro-esophageal reflux disease without esophagitis; Z79.899 Other long term (current) drug therapy
CPT/HCPCS: 83540

== ENCOUNTER → 2017-12-22 | Outpatient (CLI) | payer MEDICARE | LOC: M SLEEP 20:00 | DX: G47.33 Obstructive sleep apnea (adult) (pediatric) (principal); G47.61 Periodic limb movement disorder | CPT/HCPCS: 95811 ==

== ENCOUNTER → 2018-04-10 | Outpatient (REF) | payer MEDICARE ==
[2018-04-12 11:31] LABS: MUMPS VIRUS IgG ANTIBODY 34.5 AU/mL (Immune >10.9)
== END ==
LOC: M SFHCPLAZ 13:08
DX: Z91.89 Other specified personal risk factors, not elsewhere classified (principal)
CPT/HCPCS: 86735

== ENCOUNTER → 2018-04-29 | Outpatient (REF) | payer MEDICARE ==
[2018-05-01 14:18] LABS: HPV HYBRID CAPTURE II Negative (Negative)
== END ==
LOC: M LAB REF 13:33
DX: Z12.4 Encounter for screening for malignant neoplasm of cervix (principal)
CPT/HCPCS: G0123

== ENCOUNTER → 2018-06-12 | Outpatient (REF) | payer MEDICARE ==
[2018-06-12 12:29] LABS: HEMATOCRIT 40.2 % (36.0-47.0); HEMOGLOBIN 12.9 g/dl (12.0-15.5); MEAN CORPUSCULAR HEMOGLOBIN 29.1 pg (27.0-33.0); MEAN CORPUSCULAR HGB CONC 32.1 g/dl (32.0-36.5); MEAN CORPUSCULAR VOLUME 90.5 fl (80.0-96.0); PLATELET COUNT, AUTOMATED 274 10^3/uL (150-450); RED BLOOD COUNT 4.44 10^6/uL (4.00-5.40); RED CELL DISTRIBUTION WIDTH 13.9 % (11.5-14.5); WHITE BLOOD COUNT 10.1 10^3/uL (4.0-10.0)
[2018-06-12 12:44] LABS: ALBUMIN 3.7 GM/DL (3.2-5.2); ALBUMIN/GLOBULIN RATIO 1.16 (1.00-1.93); ALKALINE PHOSPHATASE 57 U/L (45-117); ALT/SGPT 24 U/L (12-78); ANION GAP 7 MEQ/L (8-16); AST/SGOT 11 U/L (7-37); BILIRUBIN,TOTAL 0.3 MG/DL (0.2-1.0); BLOOD UREA NITROGEN 10 MG/DL (7-18); CALCIUM LEVEL 8.4 MG/DL (8.5-10.1); CARBON DIOXIDE LEVEL 31 MEQ/L (21-32); CHLORIDE LEVEL 106 MEQ/L (98-107); CREATININE FOR GFR 0.71 MG/DL (0.55-1.30); GLOMERULAR FILTRATION RATE > 60.0 (>58); GLUCOSE, FASTING 99 MG/DL (70-100); POTASSIUM SERUM 4.2 MEQ/L (3.5-5.1); SODIUM LEVEL 144 MEQ/L (136-145); TOTAL PROTEIN 6.9 GM/DL (6.4-8.2); URIC ACID 2.6 MG/DL (2.6-6.0)
[2018-06-12 13:20] LABS: CHOLESTEROL LEVEL 213 MG/DL (<200); CHOLESTEROL RISK RATIO 6.264 (<5); HDL CHOLESTEROL 34 MG/DL (>40); LDL CHOLESTEROL 143 MG/DL (<100); NON-HDL-C 179 MG/DL; TRIGLYCERIDES LEVEL 178 MG/DL (<150)
[2018-06-12 18:07] LABS: BASO # 0.1 10^3/uL (0.0-0.2); BASO % 0.7 % (0.0-1.0); EOS # 0.2 10^3/uL (0.0-0.50); IMMATURE GRANULOCYTE % 0.2 % (0-3.0); LYMPH # 3.4 10^3/uL (1.5-4.5); LYMPH % 33.4 % (24.0-44.0); MONO # 0.5 10^3/uL (0.0-0.8); MONO % 4.8 % (0.0-5.0); NEUTROPHILS % 58.9 % (36.0-66.0)
== END ==
LOC: M SFHCPLAZ 08:09
DX: R53.83 Other fatigue (principal); F32.9 Major depressive disorder, single episode, unspecified; M25.541 Pain in joints of right hand; M25.571 Pain in right ankle and joints of right foot; Z79.899 Other long term (current) drug therapy
CPT/HCPCS: 84443

== ENCOUNTER → 2018-08-01 | Outpatient (CLI) | payer MEDICARE ==
[~2018-08-01] MED LIST changes: +TRAZ-160 PO; -TRAZ50TA11 PO
--- NOTE | 2018-08-01 15:58 | REP ---
Chest two views HISTORY: Bronchitis Comparison: 12/27/2014 The lungs are clear. The heart is normal in size. The pulmonary vasculature is normal in appearance. The bony structure is intact. IMPRESSION: No acute disease. Electronically Signed by Avelino Christie MD 08/01/2018 03:50 P
== END ==
LOC: M SMT 14:12
PROVIDERS: ATTEND Physician Assistant Medical
DX: J40 Bronchitis, not specified as acute or chronic (principal)
CPT/HCPCS: 71046; G0463

== ENCOUNTER → 2018-08-28 | Outpatient (CLI) | payer MEDICARE ==
--- NOTE | 2018-08-28 16:39 | REP ---
Chest x-ray: Two views. History: Cough. Comparison chest x-ray: August 01, 2018. Findings: There are clips in right upper quadrant. The lungs are well inflated and clear. Pleural angles are sharp. Heart size is normal. Pulmonary vasculature is not increased. There are minimal degenerative changes in the thoracic spine. Impression: No active disease. Electronically Signed by Dru Tirado MD 08/28/2018 04:31 P
== END ==
LOC: M SMT 08:18
PROVIDERS: ATTEND Family Medicine
DX: R05 Cough (principal)

== ENCOUNTER → 2018-11-06 | Outpatient (REF) | payer MEDICARE | LOC: M SFHCPLAZ 17:01 | PROVIDERS: ATTEND Physician Assistant | DX: J02.9 Acute pharyngitis, unspecified (principal) ==

== ENCOUNTER 2018-12-04 16:27 | Emergency (ER) | payer MEDICARE ==
[~2018-12-04] VITALS: Ht 157.5 cm; Wt 67.2 kg
[~2018-12-04 16:27] MED LIST changes: +NICO21DI3 EXT; -NICO21PAT EXT
[2018-12-04] MEDS ORDERED: ASPIRIN 81 MG CHEW TABLET PO ONE (17:00)
--- NOTE | 2018-12-04 17:15 | REP ---
Chest x-ray: Two views. History: Chest pain. Comparison chest x-ray: August 28, 2018. Findings: EKG monitoring electrodes overlie the chest. Heart is not enlarged. The lungs are well inflated and clear. Pleural angles are sharp. No bony abnormality is seen. There are clips in right upper quadrant of the abdomen. Impression: No active disease. Electronically Signed by Dru Tirado MD 12/04/2018 05:07 P
[2018-12-04 17:55] LABS: BASO # 0.1 10^3/uL (0.0-0.2); BASO % 0.7 % (0.0-1.0); EOS # 0.3 10^3/uL (0.0-0.50); HEMATOCRIT 37.1 % (36.0-47.0); HEMOGLOBIN 12.1 g/dl (12.0-15.5); LYMPH # 3.5 10^3/uL (1.5-4.5); LYMPH % 35.4 % (24.0-44.0); MEAN CORPUSCULAR HEMOGLOBIN 28.5 pg (27.0-33.0); MEAN CORPUSCULAR HGB CONC 32.6 g/dl (32.0-36.5); MEAN CORPUSCULAR VOLUME 87.3 fl (80.0-96.0); MONO # 0.5 10^3/uL (0.0-0.8); MONO % 5.2 % (0.0-5.0); NEUTROPHILS # 5.4 10^3/uL (1.8-7.7); NEUTROPHILS % 55.5 % (36.0-66.0); PLATELET COUNT, AUTOMATED 308 10^3/uL (150-450); RED BLOOD COUNT 4.25 10^6/uL (4.00-5.40); WHITE BLOOD COUNT 9.8 10^3/uL (4.0-10.0)
[2018-12-04 18:21] LABS: INR 1.02; PROTHROMBIN TIME 13.5 SECONDS (12.1-14.4)
[2018-12-04 18:22] LABS: PARTIAL THROMBOPLASTIN TIME 30.4 SECONDS (25.4-37.6)
[2018-12-04 18:28] LABS: ALBUMIN 3.7 GM/DL (3.2-5.2); ALT/SGPT 30 U/L (12-78); BILIRUBIN,DIRECT < 0.1 MG/DL (0.0-0.2); BILIRUBIN,TOTAL 0.4 MG/DL (0.2-1.0); BLOOD UREA NITROGEN 8 MG/DL (7-18); CALCIUM LEVEL 8.4 MG/DL (8.5-10.1); CARBON DIOXIDE LEVEL 26 MEQ/L (21-32); CHLORIDE LEVEL 110 MEQ/L (98-107); CPK CREATINE PHOSPHOKINASE 122 U/L (26-192); CREATININE FOR GFR 0.66 MG/DL (0.55-1.30); FREE T4 0.93 NG/DL (0.76-1.46); GLOMERULAR FILTRATION RATE > 60.0 (>58); GLUCOSE, FASTING 78 MG/DL (70-100); LIPASE 72 U/L (73-393); MB/CK RELATIVE INDEX 1.31 (< OR =4); SODIUM LEVEL 141 MEQ/L (136-145); TOTAL PROTEIN 6.9 GM/DL (6.4-8.2); TROPONIN I < 0.02 NG/ML (< 0.10)
[2018-12-04] MEDS ORDERED: ISOVUE-370 76% 100ML VIAL (Q9967) As Ordered ONE (18:36)
--- NOTE | 2018-12-04 19:53 | REP ---
CT pulmonary angiogram: With IV contrast. History: Chest pain and shortness of breath. Comparison studies: No comparison chest CT. Contrast dose: 75 mL of Isovue [address] technique: Helical scanning is acquired and overlapping 1.5 mm and contiguous 3 mm axial images are reformatted. In addition, maximum intensity projection and multiplanar re-formation images are generated in sagittal and coronal imaging projections. CT pulmonary angiographic findings: There is good opacification of the pulmonary arterial tree and there is no CT evidence of pulmonary embolus. No vessel cutoff or filling defect is appreciated. The thoracic aorta enhances homogeneously and is normal in course and caliber. No aneurysm or dissection is seen. There is no evidence of pleural or pericardial effusion. The lung herrera are free of infiltrate. There is a 5 mm perifissural nodule in the left upper lobe posteriorly. There is plate-like atelectasis in the lingular segment of the left upper lobe. There are small bilateral hilar lymph nodes. Two or three normal-sized mediastinal lymph nodes are seen. No definite adenopathy. No adrenal lesion is seen. A small accessory splenule is noted. The visualized upper abdominal structures are otherwise unremarkable. Impression: No CT evidence of pulmonary embolism. 5 mm edie fissural nodule in the left upper lobe posteriorly. No active disease. Electronically Signed by Dru Tirado MD 12/05/2018 07:33 A
[2018-12-04 20:30] VITALS: BP 137/69
--- NOTE | 2018-12-04 21:49 | ECGEPIP ---
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 Order Number: [id number] Reading MD: Alley Apple Measurements Intervals [place] Rate: 62 P: 26 AK: 152 QRS: 66 QRSD: 89 T: 12 QT: 412 QTc: 420 Interpretive Statements SINUS RHYTHM NSTTW ABNORMALITY DECREASED RATE 09/28/16 Electronically Signed On 12-04-2018 21:48:39 EDT by Alley Apple
--- NOTE | 2018-12-05 17:48 | ED PDOC ---
Post-Departure Follow-Up cta chest faxed to [facility] Delmi Blankenship MD Dec 05, 2018 17:48
== END 2018-12-04 21:05 | disposition left against medical advice (07) ==
LOC: M ED 16:27
DX: R91.1 Solitary pulmonary nodule (principal); R07.89 Other chest pain; F33.9 Major depressive disorder, recurrent, unspecified; G47.30 Sleep apnea, unspecified; Z79.899 Other long term (current) drug therapy; Z88.0 Allergy status to penicillin; Z88.8 Allergy status to other drugs, medicaments and biological substances; Z87.891 Personal history of nicotine dependence
CPT/HCPCS: 36415; 71046; 71275; 80048; 80076; 82550; 82553; 83690; 84439; 84443; 84484; 85025; 85610; 85730; 93005; 93041; 94760; 99285; Q9967

== ENCOUNTER 2019-03-02 09:24 | Day surgery (SDC) | payer MEDICARE ==
[~2019-03-02] VITALS: Ht 154.9 cm; Wt 65.3 kg
[~2019-03-02 09:24] MED LIST changes: +FLON1SPR; +FLUT44IN INH; +LEXA1TAB PO; +LIDOCAINE 2% INJ 100 MG/5 ML SDV (FOR ANES.) As Ordered ONE; +LINZ290C PO; +NS 1,000 ML IV ONE; +PROPOFOL 200 MG/20 ML VIAL As Ordered ONE; +SING10TA32 PO; -TRAZ-160 PO; +TRAZ-252 PO; +VENTAER INH; +WELLTAB38 PO
--- NOTE | 2019-03-02 10:58 | ROOR ---
Patient Name: Renetta Burton Procedure Date: 03/02/2019 10:48 AM Date of : 1970 Age: 48 Room: [facility] Gender: Female Note Status: Finalized Procedure: Upper GI endoscopy Indications: Nausea Providers: Eduin HACKETT MD Referring MD: Lianna Sethi NP Requesting Provider: Medicines: Monitored Anesthesia Care Complications: No immediate complications. Procedure: Pre-Anesthesia Assessment: - The heart rate, respiratory rate, oxygen saturations, blood pressure, adequacy of pulmonary ventilation, and response to care were monitored throughout the procedure. The Endoscope was introduced through the mouth, and advanced to the second part of duodenum. The upper GI endoscopy was accomplished without difficulty. The patient tolerated the procedure well. Findings: The esophagus was normal. The stomach was normal. The examined duodenum was normal. Impression: - Normal esophagus. - Normal stomach. - Normal examined duodenum. - No specimens collected. Recommendation: - Observe patient's clinical course. - Continue present medications. - Eat smaller, more frequent meals throughout the day. - Low fat diet - Avoid medications that inhibit gastric/intestinal motility such as narcotic medications. Eduin Hackett MD Eduin HACKETT MD 03/02/2019 10:58:20 AM Electronically signed by Eduin HACKETT MD Number of Addenda: 0 Note Initiated On: 03/02/2019 10:48 AM Estimated Blood Loss: Estimated blood loss: none.
[2019-03-02] MEDS ORDERED: PROPOFOL 200 MG/20 ML VIAL As Ordered ONE (11:19)
--- NOTE | 2019-03-02 11:22 | ROOR ---
Patient Name: Renetta Burton Procedure Date: 03/02/2019 10:49 AM Date of : 1970 Age: 48 Room: [facility] Gender: Female Note Status: Finalized Procedure: Colonoscopy Indications: High risk colon cancer surveillance: Personal history of colonic polyps. Incidental: Irritable bowel (IBS-C) Providers: Eduin HACKETT MD Referring MD: Lianna Sethi NP Requesting Provider: Medicines: Monitored Anesthesia Care Complications: No immediate complications. Procedure: Pre-Anesthesia Assessment: - The heart rate, respiratory rate, oxygen saturations, blood pressure, adequacy of pulmonary ventilation, and response to care were monitored throughout the procedure. The Colonoscope was introduced through the anus and advanced to the terminal ileum, with identification of the appendiceal orifice and IC valve. The colonoscopy was performed without difficulty. The patient tolerated the procedure well. The quality of the bowel preparation was good. Findings: The perianal and digital rectal examinations were normal. Two sessile polyps were found in the transverse colon and ascending colon. The polyps were diminutive in size. These polyps were removed with a cold snare. Resection and retrieval were complete. Internal hemorrhoids were found during retroflexion. The hemorrhoids were moderate. The exam was otherwise without abnormality on direct and retroflexion views. Impression: - Two diminutive polyps in the transverse colon and in the ascending colon, removed with a cold snare. Resected and retrieved. - Internal hemorrhoids. - The examination was otherwise normal on direct and retroflexion views. Recommendation: - Telephone endoscopist for pathology results in 2 weeks. - If the pathology report reveals adenomatous tissue, then repeat the colonoscopy for surveillance in 5 years. - If the pathology report indicates hyperplastic polyp, then repeat colonoscopy for screening purposes in 10 years. Eduin Hackett MD Eduin HACKETT MD 03/02/2019 11:22:27 AM Electronically signed by Eduin HACKETT MD Number of Addenda: 0 Note Initiated On: 03/02/2019 10:49 AM Estimated Blood Loss: Estimated blood loss: none.
[2019-03-02 11:45] VITALS: BP 124/77
== END 2019-03-02 11:40 | disposition home or self-care (01) ==
LOC: M OPP 09:24
PROVIDERS: ATTEND Internal Medicine Gastroenterology
DX: K63.5 Polyp of colon (principal); D12.2 Benign neoplasm of ascending colon; K64.8 Other hemorrhoids; R11.0 Nausea; Z86.010 Personal history of colon polyps; Z79.891 Long term (current) use of opiate analgesic; Z79.899 Other long term (current) drug therapy; Z88.0 Allergy status to penicillin; Z88.8 Allergy status to other drugs, medicaments and biological substances

== ENCOUNTER → 2019-05-06 | Outpatient (CLI) | payer MEDICARE ==
[~2019-05-06] MED LIST changes: -LIDOCAINE 2% INJ 100 MG/5 ML SDV (FOR ANES.) As Ordered ONE; -NS 1,000 ML IV ONE; -PROPOFOL 200 MG/20 ML VIAL As Ordered ONE
== END ==
LOC: M SMT 09:31
PROVIDERS: ATTEND Obstetrics & Gynecology
DX: Z13.79 Encounter for other screening for genetic and chromosomal anomalies (principal)

== ENCOUNTER → 2019-06-19 | Outpatient (CLI) | payer MEDICARE ==
--- NOTE | 2019-06-19 15:05 | REP ---
Clinical: Follow up solitary pulmonary nodule. Technique: Axial noncontrast images from the thoracic inlet to the upper abdomen with coronal and sagittal re-formations. Comparison: 12/04/2018. Findings: The bilateral lung herrera are relatively well aerated. There is minimal linear scarring at the lingula. Previously identified 5 mm nodule inseparable from the superior origin of the left major fissure (image 22) remains stable and likely represents small scar. No further acute consolidation, significant nodule, or mass lesion. No effusion. No pneumothorax. Tracheobronchial tree is patent. No obvious adenopathy. Thoracic aorta without aneurysm. Heart and pericardium are normal. Surrounding musculoskeletal structures are intact. Impression: 1. 5 mm nodule inseparable from the superior origin of the left major fissure remain stable and likely represents small scar. 2. No further acute mediastinal or pleuroparenchymal process appreciated. Electronically Signed by Bijan Edmondson MD 06/19/2019 02:57 P
== END ==
LOC: M RAD 14:30
PROVIDERS: ATTEND Internal Medicine Pulmonary Disease
DX: R91.1 Solitary pulmonary nodule (principal)

== ENCOUNTER 2019-07-09 19:55 | Emergency (ER) | payer MEDICARE ==
[~2019-07-09] VITALS: Ht 154.9 cm; Wt 70.5 kg
[2019-07-09] MEDS ORDERED: ADDY1TAB PO (20:04)
[2019-07-09] MEDS ORDERED: KETOROLAC 60 MG/2 ML VIAL (J1885) IM ONE (20:45)
--- NOTE | 2019-07-09 21:05 | REPVR ---
PROCEDURE INFORMATION: Exam: CT Head Without Contrast Exam date and time: 07/09/2019 8:47 PM Age: 49 years old Clinical history: Pain; Headache not specified; Additional info: MCCOLLUM TECHNIQUE: Imaging protocol: Computed tomography of the head without contrast. Radiation optimization: All CT scans at this facility use at least one of these dose optimization techniques: automated exposure control; mA and/or kV adjustment per patient size (includes targeted exams where dose is matched to clinical indication); or iterative reconstruction. COMPARISON: No relevant prior studies available. FINDINGS: Brain: Normal. No hemorrhage. Unremarkable white matter. No mass effect. Ventricles: Normal. No ventriculomegaly. Bones/joints: Unremarkable. No acute fracture. Sinuses: Visualized sinuses are unremarkable. No fluid levels. Mastoid air cells: Visualized mastoid air cells are well aerated. Soft tissues: Unremarkable. IMPRESSION: No acute intracranial abnormality. Electronically signed by: Skyler Ochoa On 07/09/2019 21:05:34 PM
[2019-07-09] MEDS ORDERED: dexameTHASONE 20 MG/5 ML VIAL (J1100) IV ONE (21:30)
[2019-07-09 21:34] LABS: INFLUENZA A AMPLIFICATION NEGATIVE (NEGATIVE); INFLUENZA B AMPLIFICATION NEGATIVE (NEGATIVE)
[2019-07-09] MEDS ORDERED: MORPHINE 4 MG/ML 1ML VIAL/SYRINGE (J2270) IV ONE ×2 (22:30→23:15)
[2019-07-09 23:36] LABS: CK-MB VALUE MASS < 1.0 NG/ML (<3.6); CPK CREATINE PHOSPHOKINASE 122 U/L (26-192); MB/CK RELATIVE INDEX 0.82 (< OR =4); TROPONIN I < 0.02 NG/ML (< 0.10)
[2019-07-09] MEDS ORDERED: PRED20TA PO (23:42)
[2019-07-10 00:01] VITALS: BP 129/72
--- NOTE | 2019-07-10 08:55 | REP ---
Chest x-ray: Two views. History: Cough . Comparison study: December 04, 2018 . Findings: The lungs are well inflated and free of infiltrate. The pleural angles are sharp. The heart size is normal. Pulmonary vasculature is not increased. No significant bony abnormality is seen. Monitoring electrodes are seen overlying the chest. Impression: Negative chest x-ray. Electronically Signed by Dru Tirado MD 07/10/2019 08:46 A
--- NOTE | 2019-07-10 13:10 | ECGEPIP ---
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
== END 2019-07-10 00:02 | disposition home or self-care (01) ==
LOC: M ED 19:55
DX: R51 Headache (principal); M31.6 Other giant cell arteritis; R94.31 Abnormal electrocardiogram [ECG] [EKG]; J45.909 Unspecified asthma, uncomplicated; F33.9 Major depressive disorder, recurrent, unspecified; G89.29 Other chronic pain; K58.8 Other irritable bowel syndrome; F41.9 Anxiety disorder, unspecified; F17.290 Nicotine dependence, other tobacco product, uncomplicated; Z88.0 Allergy status to penicillin; Z88.8 Allergy status to other drugs, medicaments and biological substances; Z79.51 Long term (current) use of inhaled steroids; Z79.52 Long term (current) use of systemic steroids; Z79.899 Other long term (current) drug therapy
CPT/HCPCS: 36415; 70450; 71046; 82550; 82553; 84484; 85652; 87502; 93005; 96372; 96374; 96375; 96376; 99284; J1100; J1885; J2270

== ENCOUNTER → 2019-07-13 | Outpatient (REF) | payer MEDICARE ==
[~2019-07-13] MED LIST changes: +ADDY1TAB PO; +PRED20TA PO
[2019-07-13 11:44] LABS: HEMATOCRIT 40.6 % (36.0-47.0); HEMOGLOBIN 12.8 g/dl (12.0-15.5); MEAN CORPUSCULAR HEMOGLOBIN 28.5 pg (27.0-33.0); MEAN CORPUSCULAR HGB CONC 31.5 g/dl (32.0-36.5); MEAN CORPUSCULAR VOLUME 90.4 fl (80.0-96.0); PLATELET COUNT, AUTOMATED 431 10^3/uL (150-450); RED BLOOD COUNT 4.49 10^6/uL (4.00-5.40)
[2019-07-13 11:50] LABS: WHITE BLOOD COUNT 16.4 10^3/uL (4.0-10.0)
[2019-07-13 12:21] LABS: ALBUMIN 3.3 GM/DL (3.2-5.2); ALT/SGPT 21 U/L (12-78); BILIRUBIN,TOTAL 0.2 MG/DL (0.2-1.0); BLOOD UREA NITROGEN 12 MG/DL (7-18); C REACTIVE PROTEIN QUANTITATIV 0.63 MG/DL (0.00-0.30); CALCIUM LEVEL 8.9 MG/DL (8.5-10.1); CARBON DIOXIDE LEVEL 33 MEQ/L (21-32); CHLORIDE LEVEL 106 MEQ/L (98-107); CHOLESTEROL LEVEL 188 MG/DL (<200); CREATININE FOR GFR 0.79 MG/DL (0.55-1.30); GLOMERULAR FILTRATION RATE > 60.0 (>58); GLUCOSE, FASTING 76 MG/DL (70-100); HDL CHOLESTEROL 40 MG/DL (>40); LDL CHOLESTEROL 111 MG/DL (<100); NON-HDL-C 148 MG/DL; POTASSIUM SERUM 3.5 MEQ/L (3.5-5.1); SODIUM LEVEL 143 MEQ/L (136-145); TOTAL PROTEIN 7.2 GM/DL (6.4-8.2); TRIGLYCERIDES LEVEL 183 MG/DL (<150)
[2019-07-13 12:39] LABS: ATYPICAL LYMPH 2 % (0-5); LYMPHOCYTES 33 % (16-44); MONOCYTES 7 % (0-5); NEUTROPHILS 58 % (28-66); PLATELET ESTIMATE NORMAL (NORMAL)
[2019-07-13 12:40] LABS: ANISOCYTOSIS 1+
== END ==
LOC: M SFHCPLAZ 10:12
PROVIDERS: ATTEND Family Medicine
DX: M35.3 Polymyalgia rheumatica (principal); Z13.1 Encounter for screening for diabetes mellitus; R51 Headache; Z13.220 Encounter for screening for lipoid disorders; R53.83 Other fatigue; Z79.899 Other long term (current) drug therapy
CPT/HCPCS: 36415; 80053; 80061; 84443; 85025; 86140; G0463

== ENCOUNTER → 2019-07-21 | Outpatient (REF) | payer MEDICARE | LOC: M LAB REF 09:08 | PROVIDERS: ATTEND Surgery | DX: M31.6 Other giant cell arteritis (principal) ==

== ENCOUNTER → 2019-09-11 | Outpatient (REF) | payer MEDICARE ==
[2019-09-15 00:06] LABS: ANTINUCLEAR ANTIBODIES DIRECT Negative (Negative); CYCLIC CITRULLINATED PEPTIDE 7 units (0-19); Lyme Disease IgG/IgM Antibodie <0.91 ISR (0.00-0.90); Lyme Disease IgM Ab Quantitati <0.80 index (0.00-0.79)
== END ==
LOC: M LAB REF 17:54
PROVIDERS: ATTEND Internal Medicine
DX: M25.50 Pain in unspecified joint (principal); M79.7 Fibromyalgia

== ENCOUNTER 2019-10-31 05:54 | Emergency (ER) | payer MEDICARE ==
[~2019-10-31] VITALS: Ht 157.5 cm; Wt 62.4 kg
[2019-10-31] MEDS ORDERED: ALBUTEROL SULFATE 2.5 MG/0.5 ML INH NEB SOLN NEB PRN (06:45)
[2019-10-31 07:18] LABS: BASO # 0.1 10^3/uL (0.0-0.2); BASO % 0.7 % (0.0-1.0); EOS # 0.1 10^3/uL (0.0-0.5); EOS % 1.2 % (0.0-3.0); HEMATOCRIT 37.8 % (36.0-47.0); HEMOGLOBIN 12.3 g/dl (12.0-15.5); LYMPH # 3.5 10^3/uL (1.5-5.0); LYMPH % 30.5 % (24.0-44.0); MEAN CORPUSCULAR HEMOGLOBIN 27.3 pg (27.0-33.0); MEAN CORPUSCULAR HGB CONC 32.5 g/dl (32.0-36.5); MEAN CORPUSCULAR VOLUME 83.8 fl (80.0-96.0); MONO # 0.6 10^3/uL (0.0-0.8); MONO % 4.9 % (0.0-5.0); NEUTROPHILS # 7.1 10^3/uL (1.5-8.5); NEUTROPHILS % 62.3 % (36.0-66.0); PLATELET COUNT, AUTOMATED 414 10^3/uL (150-450); RED BLOOD COUNT 4.51 10^6/uL (4.00-5.40); WHITE BLOOD COUNT 11.3 10^3/uL (4.0-10.0)
[2019-10-31] MEDS ORDERED: DULO1CAP5 PO (07:19)
[2019-10-31 07:41] LABS: INFLUENZA A AMPLIFICATION NEGATIVE (NEGATIVE); INFLUENZA B AMPLIFICATION NEGATIVE (NEGATIVE)
[2019-10-31 07:57] LABS: BLOOD UREA NITROGEN 11 MG/DL (7-18); CALCIUM LEVEL 8.1 MG/DL (8.5-10.1); CARBON DIOXIDE LEVEL 26 MEQ/L (21-32); CHLORIDE LEVEL 109 MEQ/L (98-107); GLOMERULAR FILTRATION RATE > 60.0 (>58); GLUCOSE, FASTING 100 MG/DL (70-100); SODIUM LEVEL 141 MEQ/L (136-145)
[2019-10-31] MEDS ORDERED: ALBUTEROL 90 MCG/ACT 8GM HFA INHALER INH ONE (08:00)
[2019-10-31] MEDS ORDERED: methylPREDNISolone INJ 125 MG/2 ML VIAL (J2930) IV ONE (08:00)
[2019-10-31] MEDS ORDERED: PROAAER10 INH (10:11)
[2019-10-31] MEDS ORDERED: AZIT-12 PO (10:12)
--- NOTE | 2019-10-31 10:23 | REP ---
REASON: Cough and dyspnea. COMPARISON: Multiple, the latest 07/09/2019. TWO-VIEW CHEST: COMPARISON: No priors. FINDINGS: The superior mediastinal structures are midline. The cardiac silhouette is unremarkable in size, shape, and position. The diaphragmatic surfaces of the lungs are regular, and the costophrenic angles are clear. The pulmonary herrera are clear. The imaged osseous structures are intact. IMPRESSION: There is no acute cardiopulmonary disease. No significant change from the prior exam. Electronically Signed by Migue Martinez DO 10/31/2019 10:28 A
[2019-10-31 10:33] VITALS: BP 96/67
== END 2019-10-31 10:35 | disposition home or self-care (01) ==
LOC: M ED 05:54
DX: J06.9 Acute upper respiratory infection, unspecified (principal); J20.9 Acute bronchitis, unspecified; J45.909 Unspecified asthma, uncomplicated; R06.2 Wheezing; Z87.891 Personal history of nicotine dependence; Z88.0 Allergy status to penicillin; Z88.8 Allergy status to other drugs, medicaments and biological substances
CPT/HCPCS: 71046; 80048; 85025; 87631; 94640; 96374; 99283; J2930

== ENCOUNTER → 2019-12-07 | Outpatient (REF) | payer MEDICARE ==
[~2019-12-07] MED LIST changes: +AZIT-12 PO; +DULO1CAP5 PO; +PROAAER10 INH
== END ==
LOC: M LAB REF 12:36
PROVIDERS: ATTEND Internal Medicine
DX: R30.0 Dysuria (principal); R35.0 Frequency of micturition

== ENCOUNTER → 2020-07-20 | Outpatient (REF) | payer MEDICARE ==
[2020-07-23 00:12] LABS: ANTINUCLEAR ANTIBODIES DIRECT Negative (Negative); CYCLIC CITRULLINATED PEPTIDE 3 units (0-19)
== END ==
LOC: M LAB REF 16:16
PROVIDERS: ATTEND Internal Medicine
DX: M79.7 Fibromyalgia (principal); M25.59 Pain in other specified joint

== ENCOUNTER → 2020-12-20 | Outpatient (REF) | payer MEDICARE ==
[~2020-12-20] MED LIST changes: +METH-1164 PO; -METH1TAB40 PO
[2020-12-20 15:40] LABS: FREE T4 0.88 NG/DL (0.76-1.46); THYROID STIMULATING HORMONE 1.09 uIU/ML (0.358-3.740)
== END ==
LOC: M PLALAB 14:47
PROVIDERS: ATTEND Internal Medicine Gastroenterology
DX: K58.1 Irritable bowel syndrome with constipation (principal)
CPT/HCPCS: 36415; 84439; 84443; G0463

== ENCOUNTER → 2021-01-10 | Outpatient (CLI) | payer MEDICARE ==
--- NOTE | 2021-01-10 10:36 | REPVR ---
PROCEDURE INFORMATION: Exam: CT Chest Without Contrast; Diagnostic Exam date and time: 01/10/2021 10:02 AM Age: 50 years old Clinical indication: Other: Nodule; Additional info: Solitary pulmonary nodule/pft appt after TECHNIQUE: Imaging protocol: Diagnostic computed tomography of the chest without contrast. 3D rendering (Not supervised by radiologist): MIP and/or 3D reconstructed images were created by the technologist. Radiation optimization: All CT scans at this facility use at least one of these dose optimization techniques: automated exposure control; mA and/or kV adjustment per patient size (includes targeted exams where dose is matched to clinical indication); or iterative reconstruction. COMPARISON: CT Chest without contrast 06/19/2019 2:42 PM FINDINGS: Lungs: Stable 4 mm nodule in the posterior segment of the left upper lobe, adjacent to the major fissure. For patients at low risk (minimal or absent history of smoking and of other known risk factors), no routine follow-up is indicated. For patients at high risk (history of smoking or of other known risk factors), consider optional CT Chest at 12 months. (Reference: Vadim). Hyperinflation, interstitial prominence, and mild airspace disease. Pleural spaces: No pleural effusion. Heart: No cardiomegaly. Aorta: Normal caliber of the thoracic aorta. Lymph nodes: Mediastinal lymph nodes, including a 2.1 by 1.3 by 0.8 cm AP window lymph node. Note evaluation of the priscila is somewhat limited in the absence of intravenous contrast. Gallbladder and bile ducts: Status post cholecystectomy. 1 mm nonobstructing left renal calculus. Prominent stool. Questionable wall thickening in the nondistended stomach. Bones/joints: Degenerative change and scoliosis. Soft tissues: Punctate right breast calcification. IMPRESSION: 1. Stable 4 mm nodule in the posterior segment of the left upper lobe, adjacent to the major fissure. 2. Hyperinflation, interstitial prominence, and mild airspace disease. 3. Additional findings as described above. Electronically signed by: Tej Caruso On 01/10/2021 10:36:32 AM
--- NOTE | 2021-01-10 10:40 | PFTRPT ---
Height: 62.00 Inches Weight: 142.00 Lbs BSA: 1.65 Diagnosis: R91.1 DATE: 01/10/2021 ORDERING PHYSICIAN: KWESI Bateman Pre and post bronchodilator studies have excellent technical quality. Forced vital capacity is normal. FEV1 out of proportion. Obstructive index is therefore reduction. Expiratory limit of the flow-volume loop does suggest some degree of flow rate limitation. No significant bronchodilator response is identified. Total lung capacity is normal. Residual volume borderline for air trapping. Diffusing capacity although reduced is appropriate for alveolar volume. Hemoglobin is acceptable at 13.6. Airway resistance and conductance are normal. IMPRESSION: Mild obstructive ventilatory impairment without significant bronchodilator response. Please correlate clinically. MTDD
== END ==
LOC: M RAD 09:56
PROVIDERS: ATTEND Physician Assistant
DX: R91.1 Solitary pulmonary nodule (principal)

== ENCOUNTER → 2021-01-11 | Outpatient (CLI) | payer MEDICARE ==
--- NOTE | 2021-01-11 09:57 | REPMRS ---
Patient History The patient states she had a clinical breast exam in December 2020. Family history of colorectal cancer at age 50 or over in paternal grandfather, pancreatic cancer at age 58 in mother, pancreatic cancer at age 70 in maternal grandmother. Benign stereotatic breast biopsy of the right breast, March 27, 2010. No breast complaints today Patient signed the MRS sheet No covid vaccine Most recent mammos done @ [facility] Patient Identification Verified Digital Woman Screen Mammo: January 11, 2021 - Exam #: [id number] Bilateral CC and MLO view(s) were taken. Technologist: Alexandra Brown, Technologist Prior study comparison: May 22, 2019, bilateral digital mammo screening bilat, performed at [facility]. March 28, 2018, bilateral digital mammo screening bilat, performed at [facility]. March 11, 2017, digital woman screen mammo performed at [facility]. FINDINGS: The breast tissue is heterogeneously dense. This may lower the sensitivity of mammography. The Volpara volumetric breast density category is: C. There is a needle biopsy marker clip noted in the right breast. There is a moderate amount of heterogeneously dense fibroglandular tissue which is fairly symmetric. There is no interval development of dominant mass, architectural distortion, or grouped microcalcification typical of malignancy. There has been no change in the appearance of the mammogram from the prior studies. 3-D tomosynthesis shows no additional findings. Assessment: BI-RADS/ACR category 2 mammogram. Benign Findings. Recommendation Routine screening mammogram of both breasts in 1 year (for women over age 40). This patient's [facility] Lifetime Breast Cancer RIsk is estimated at 8.3 %. This mammogram was interpreted with the aid of an FDA-approved computer-aided dectection system. Electronically Signed By: Messi Tirado MD 01/11/21 0956
== END ==
LOC: M WHC 08:45
PROVIDERS: ATTEND Obstetrics & Gynecology
DX: Z12.31 Encounter for screening mammogram for malignant neoplasm of breast (principal)

== ENCOUNTER 2021-02-04 14:06 | Emergency (ER) | payer OTHER, MEDICARE ==
[~2021-02-04] VITALS: Ht 157.5 cm; Wt 62.9 kg
[2021-02-04 14:07] VITALS: BP 127/85
[2021-02-04] MEDS ORDERED: FLUT1BLS8 (14:19)
[2021-02-04] MEDS ORDERED: DULO1CAP6 (14:19)
[2021-02-04] MEDS ORDERED: ARNU1INH (14:19)
[2021-02-04] MEDS ORDERED: BUPR300T92 (14:19)
== END 2021-02-04 15:50 | disposition left against medical advice (07) ==
LOC: M ED 14:06
DX: Z53.21 Procedure and treatment not carried out due to patient leaving prior to being seen by health care provider (principal)

== ENCOUNTER → 2021-12-23 | Outpatient (CLI) | payer MEDICARE, OTHER ==
[~2021-12-23] MED LIST changes: +ARNU1INH; +BUPR300T92 PO; +DULO1CAP6 PO; +FLUT1BLS8 INH; +LACT20EL PO
== END ==
LOC: M LABSMTC 11:38
PROVIDERS: ATTEND Anesthesiology
DX: Z20.828 Contact with and (suspected) exposure to other viral communicable diseases (principal); Z11.59 Encounter for screening for other viral diseases

== ENCOUNTER 2021-12-28 09:09 | Day surgery (SDC) | payer MEDICARE ==
[~2021-12-28] VITALS: Ht 157.5 cm; Wt 61.9 kg
[~2021-12-28 09:09] MED LIST changes: +LIDOCAINE 2% 100MG/5ML SDV (FOR ANES.) As Ordered ONE; +NS 1,000 ML IV ONE; +propofoL 200 MG/20 ML VIAL As Ordered ONE
[2021-12-28 11:16] VITALS: BP 102/57
== END 2021-12-28 11:28 | disposition home or self-care (01) ==
LOC: M OPP 09:09
PROVIDERS: ATTEND Internal Medicine Gastroenterology
DX: Z12.11 Encounter for screening for malignant neoplasm of colon (principal); Z86.010 Personal history of colon polyps; Z80.0 Family history of malignant neoplasm of digestive organs; K63.5 Polyp of colon; Q43.8 Other specified congenital malformations of intestine; K62.5 Hemorrhage of anus and rectum; Z79.899 Other long term (current) drug therapy; Z88.0 Allergy status to penicillin; Z88.8 Allergy status to other drugs, medicaments and biological substances; Z91.018 Allergy to other foods; Z86.14 Personal history of Methicillin resistant Staphylococcus aureus infection; Z87.442 Personal history of urinary calculi; Z87.891 Personal history of nicotine dependence

== ENCOUNTER → 2022-01-19 | Outpatient (REF) | payer MEDICARE, OTHER ==
[~2022-01-19] MED LIST changes: -LIDOCAINE 2% 100MG/5ML SDV (FOR ANES.) As Ordered ONE; -NS 1,000 ML IV ONE; -propofoL 200 MG/20 ML VIAL As Ordered ONE
[2022-01-23 05:07] LABS: ANTINUCLEAR ANTIBODIES DIRECT Negative (Negative); CYCLIC CITRULLINATED PEPTIDE 2 units (0-19)
== END ==
LOC: M LAB REF 17:11
PROVIDERS: ATTEND Internal Medicine
DX: M25.50 Pain in unspecified joint (principal)

== ENCOUNTER → 2022-01-22 | Outpatient (REF) | payer MEDICARE, OTHER | LOC: M LAB REF 09:50 | PROVIDERS: ATTEND Internal Medicine | DX: I10 Essential (primary) hypertension (principal); R51.9 Headache, unspecified ==

== ENCOUNTER → 2022-07-17 | Outpatient (REF) | payer OTHER, MEDICARE | LOC: M LAB REF 16:24 | PROVIDERS: ATTEND Internal Medicine | DX: Z80.0 Family history of malignant neoplasm of digestive organs (principal) ==

== ENCOUNTER → 2022-09-19 | Outpatient (CLI) | payer OTHER, MEDICARE | LOC: M SOG 08:05 | PROVIDERS: ATTEND Orthopaedic Surgery | DX: M54.50 Low back pain, unspecified (principal) ==

== ENCOUNTER → 2022-10-04 | Outpatient (CLI) | payer OTHER | LOC: M RAD 08:44 | PROVIDERS: ATTEND Physician Assistant | DX: Z87.891 Personal history of nicotine dependence (principal) ==

== ENCOUNTER → 2022-12-14 | Outpatient (REF) | payer OTHER ==
[~2022-12-14] MED LIST changes: +MONT-5 PO; -SING10TA32 PO
== END ==
LOC: M LAB REF 16:23
PROVIDERS: ATTEND Internal Medicine
DX: H66.91 Otitis media, unspecified, right ear (principal); J02.9 Acute pharyngitis, unspecified

== ENCOUNTER 2024-03-16 09:54 | Day surgery (SDC) | payer MEDICARE ==
[~2024-03-16] VITALS: Ht 154.9 cm; Wt 61.3 kg
[~2024-03-16 09:54] MED LIST changes: +AMLO1TAB24 PO; +ATIV1TAB10 PO; +BUPR-597 PO; -BUPR300T92 PO; +FEXO-112 PO; +PANT40TA29 PO
[2024-03-16] MEDS: NS 1,000 ML IV ONE (10:47)
[2024-03-16] MEDS ORDERED: fentaNYL 100 MCG/2 ML INJECTION As Ordered ONE (11:03)
[2024-03-16] MEDS ORDERED: propofoL 200 MG/20 ML VIAL As Ordered ONE (11:26)
[2024-03-16 12:25] VITALS: TEMP 97.4
[2024-03-16] MEDS: ONDANSETRON 4MG 2ML VIAL IV ONE (12:40)
[2024-03-16 13:11] VITALS: BP 121/66; O2SAT 98
== END 2024-03-16 13:10 | disposition home or self-care (01) ==
LOC: M OPP 09:54
PROVIDERS: ATTEND Internal Medicine Gastroenterology
DX: D12.5 Benign neoplasm of sigmoid colon (principal); K63.5 Polyp of colon; K64.8 Other hemorrhoids; K64.4 Residual hemorrhoidal skin tags; K59.00 Constipation, unspecified; Z86.010 Personal history of colon polyps; K92.1 Melena; K31.89 Other diseases of stomach and duodenum; R11.0 Nausea; G47.30 Sleep apnea, unspecified; Z99.89 Dependence on other enabling machines and devices; I10 Essential (primary) hypertension; J44.9 Chronic obstructive pulmonary disease, unspecified; Z79.1 Long term (current) use of non-steroidal anti-inflammatories (NSAID); Z79.899 Other long term (current) drug therapy; Z88.0 Allergy status to penicillin; Z88.8 Allergy status to other drugs, medicaments and biological substances
CPT/HCPCS: 43239; 45385; 88305; J2405; J3010

== ENCOUNTER → 2024-05-01 | Outpatient (CLI) | payer MEDICARE | LOC: M SOG 08:20 | PROVIDERS: ATTEND Physician Assistant | DX: M25.512 Pain in left shoulder (principal) ==

== ENCOUNTER → 2024-10-28 | Outpatient (CLI) | payer MEDICARE | LOC: M WHC 15:01 | PROVIDERS: ATTEND Internal Medicine | DX: Z12.31 Encounter for screening mammogram for malignant neoplasm of breast (principal) ==

== ENCOUNTER → 2024-11-12 | Outpatient (CLI) | payer MEDICARE | LOC: M RAD 10:26 | PROVIDERS: ATTEND Physician Assistant | DX: Z12.2 Encounter for screening for malignant neoplasm of respiratory organs (principal); Z87.891 Personal history of nicotine dependence ==

== ENCOUNTER → 2025-05-07 | Outpatient (REF) | payer MEDICARE, OTHER ==
[~2025-05-07] MED LIST changes: -BUPR-597 PO; +BUPR-766 PO
== END ==
LOC: M LAB REF 12:23
PROVIDERS: ATTEND Internal Medicine
DX: Z20.1 Contact with and (suspected) exposure to tuberculosis (principal)

== ENCOUNTER → 2025-05-18 | Outpatient (CLI) | payer MEDICARE | LOC: M RAD 12:37 | PROVIDERS: ATTEND Physician Assistant | DX: R91.8 Other nonspecific abnormal finding of lung field (principal); J98.4 Other disorders of lung; J84.10 Pulmonary fibrosis, unspecified; R59.0 Localized enlarged lymph nodes ==

== ENCOUNTER → 2025-06-18 | Outpatient (REF) | payer MEDICARE ==
[2025-06-18 13:46] LABS: IRON (FE) 39.0 UG/DL (50-170); PERCENT SATURATION 11.6 % (13.2-45.0)
== END ==
LOC: M LAB REF 12:47
PROVIDERS: ATTEND Internal Medicine
DX: R10.13 Epigastric pain (principal); D64.9 Anemia, unspecified

== ENCOUNTER 2025-07-01 07:38 | Day surgery (SDC) | payer MEDICARE ==
[~2025-07-01] VITALS: Ht 154.9 cm; Wt 62.8 kg
[~2025-07-01 07:38] MED LIST changes: +DULO60CA35 PO; +ROSU5TAB49 PO; +SPIR1CAP INH; +VALS1TAB66 PO
[2025-07-01] MEDS ORDERED: LIDOCAINE 2% 100 MG/5 ML SDV (FOR ANES.) As Ordered ONE (09:10)
[2025-07-01 09:25] VITALS: BP 129/81; O2SAT 96
== END 2025-07-01 09:29 | disposition home or self-care (01) ==
LOC: M OPP 07:38
PROVIDERS: ATTEND Internal Medicine Gastroenterology
DX: K22.2 Esophageal obstruction (principal); R93.3 Abnormal findings on diagnostic imaging of other parts of digestive tract; R13.14 Dysphagia, pharyngoesophageal phase; G47.30 Sleep apnea, unspecified; Z88.0 Allergy status to penicillin; Z88.8 Allergy status to other drugs, medicaments and biological substances; Z79.899 Other long term (current) drug therapy; J44.9 Chronic obstructive pulmonary disease, unspecified; Z87.891 Personal history of nicotine dependence
CPT/HCPCS: 43239; 43249; 88305; J3010

== ENCOUNTER → 2025-07-07 | Outpatient (CLI) | payer MEDICARE ==
[~2025-07-07] MED LIST changes: +GASTROGRAFIN SOLUTION 30 ML ONE; +ISOVUE-370 76% 100 ML VIAL ONE
== END ==
LOC: M PLAIMG 10:52
PROVIDERS: ATTEND Internal Medicine
DX: R63.4 Abnormal weight loss (principal); R10.13 Epigastric pain
CPT/HCPCS: 74177; Q9963; Q9967